=== PATIENT | male | born 1965 | race African-American/Black ===

== ENCOUNTER → 2016-05-29 | Outpatient (CLI) | payer MEDICAID | LOC: RAD 16:56 | PROVIDERS: ATTEND Physician Assistant | DX: R26.9 Unspecified abnormalities of gait and mobility (principal); R20.9 Unspecified disturbances of skin sensation; M47.892 Other spondylosis, cervical region; Z86.73 Personal history of transient ischemic attack (TIA), and cerebral infarction without residual deficits | CPT/HCPCS: 70551; 72141 ==

== ENCOUNTER → 2016-07-30 | Outpatient (CLI) | payer MEDICAID, OTHER ==
[2016-07-30 14:03] LABS: ABSOLUTE EOSINOPHILS # (AUTO) 0.1 10^3/uL (0.0-0.6); ABSOLUTE LYMPHOCYTES (AUTO) 2.1 10^3/uL (0.5-4.7); ABSOLUTE MONOCYTES (AUTO) 0.5 10^3/uL (0.1-1.4); ABSOLUTE NEUT (AUTO) 4.5 10^3/uL (1.7-8.2); BASOPHILS % (AUTO) 0.5 % (0-2); EOSINOPHILS % (AUTO) 1.1 % (0-6); HEMATOCRIT 51.5 % (37.9-51.0); HEMOGLOBIN 16.8 g/dL (13.5-17.0); HGB HCT DIFFERENCE -1.1; LYMPHOCYTES % (AUTO) 28.6 % (13-45); MEAN CORPUSCULAR HEMOGLOBIN 29.4 pg (27.0-33.4); MEAN CORPUSCULAR HGB CONC 32.7 g/dL (32.0-36.0); MEAN CORPUSCULAR VOLUME 90 fl (80-97); MONOCYTES % (AUTO) 7.6 % (3-13); RED BLOOD COUNT 5.74 10^6/uL (4.35-5.55); RED CELL DISTRIBUTION WIDTH 15.3 % (11.5-14.0); SEGMENTED NEUTROPHILS % (AUTO) 62.2 % (42-78); WHITE BLOOD COUNT 7.2 10^3/uL (4.0-10.5)
[2016-07-30 14:17] LABS: ALANINE AMINOTRANSFERASE 36 U/L (21-72); ALBUMIN 4.1 g/dL (3.5-5.0); ALKALINE PHOSPHATASE 91 U/L (38-126); ANION GAP 10 (5-19); ASPARTATE AMINO TRANSFERASE 23 U/L (17-59); BILIRUBIN,DIRECT 0.4 mg/dL (0.0-0.4); BILIRUBIN,TOTAL 0.6 mg/dL (0.2-1.3); BLOOD UREA NITROGEN 9 mg/dL (7-20); CALCIUM 9.3 mg/dL (8.4-10.2); CARBON DIOXIDE 29 mmol/L (22-30); CHLORIDE 107 mmol/L (98-107); CHOLESTEROL 136.31 mg/dL (0-200); CREATININE RESULT 0.97 mg/dL (0.52-1.25); Direct HDL 43 mg/dL (>40); GLUCOSE 105 mg/dL (75-110); SODIUM 145.6 mmol/L (137-145); TOTAL PROTEIN 7.8 g/dL (6.3-8.2); TRIGLYCERIDES 93 mg/dL (<150)
[2016-07-30 14:28] LABS: DIRECT LDL 58 mg/dL (<100)
== END ==
LOC: LAB 13:39
PROVIDERS: ATTEND Physician Assistant
DX: F31.9 Bipolar disorder, unspecified (principal)
CPT/HCPCS: 36415; 80053; 80061; 83036; 85025

== ENCOUNTER 2016-10-15 10:29 | Emergency (ER) | payer MEDICAID ==
--- NOTE | 2016-10-15 11:23 | ER Document Report ---
ED Medical Screen (RME) - General Chief Complaint: Breathing Difficulty Stated Complaint: DIFFICULTY BREATHING Time Seen by Provider: 10/15/16 10:59 Mode of Arrival: Ambulatory Information source: Patient TRAVEL OUTSIDE OF THE [place] IN LAST 30 DAYS: No - HPI Patient complains to provider of: Cough, shortness of breath Onset: Other - 2 Weeks Associated Symptoms: Cough (nonproductive), Shortness of breath Exacerbated by: Denies Relieved by: Denies Notes: 10/15/16 11:22 Patient is a 51-year-old male with a history of COPD who is on 2 L of oxygen , presents to the emergency room complaining of nonproductive cough with shortness of breath this been worsening over the past 2 weeks, no fevers, no chest pain, he does not use CPAP at night - Related Data Allergies/Adverse Reactions: No Known Allergies Allergy (Verified 10/15/16 10:34) Past Medical History - Past Medical History Cardiac Medical History: Reports: Hx Hypertension Neurological Medical History: Reports: Hx Cerebrovascular Accident - 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., Hx Seizures Renal/ Medical History: Denies: Hx Peritoneal Dialysis Psychiatric Medical History: Reports: Hx Depression Past Surgical History: Reports: Hx Neurologic Surgery - 2 [place]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
[2016-10-15 11:50] LABS: ABSOLUTE BASOPHILS # (AUTO) 0.1 10^3/uL (0.0-0.2); ABSOLUTE EOSINOPHILS # (AUTO) 0.1 10^3/uL (0.0-0.6); ABSOLUTE LYMPHOCYTES (AUTO) 1.9 10^3/uL (0.5-4.7); ABSOLUTE MONOCYTES (AUTO) 0.7 10^3/uL (0.1-1.4); ABSOLUTE NEUT (AUTO) 5.1 10^3/uL (1.7-8.2); BASOPHILS % (AUTO) 0.7 % (0-2); EOSINOPHILS % (AUTO) 1.6 % (0-6); HEMATOCRIT 48.5 % (37.9-51.0); HEMOGLOBIN 16.7 g/dL (13.5-17.0); HGB HCT DIFFERENCE 1.6; LYMPHOCYTES % (AUTO) 24.2 % (13-45); MEAN CORPUSCULAR HEMOGLOBIN 30.4 pg (27.0-33.4); MEAN CORPUSCULAR HGB CONC 34.3 g/dL (32.0-36.0); MEAN CORPUSCULAR VOLUME 89 fl (80-97); MONOCYTES % (AUTO) 8.4 % (3-13); RED BLOOD COUNT 5.48 10^6/uL (4.35-5.55); RED CELL DISTRIBUTION WIDTH 14.7 % (11.5-14.0); SEGMENTED NEUTROPHILS % (AUTO) 65.1 % (42-78); WHITE BLOOD COUNT 7.9 10^3/uL (4.0-10.5)
[2016-10-15 11:53] LABS: VENOUS BLOOD BASE EXCESS 3.9 mmol/L; VENOUS BLOOD HCO3 32.1 mmol/L (20-32); VENOUS BLOOD PCO2 61.9 mmHg (35-63); VENOUS BLOOD PH 7.33 (7.30-7.42)
[2016-10-15 12:11] LABS: ALANINE AMINOTRANSFERASE 37 U/L (21-72); ALBUMIN 4.3 g/dL (3.5-5.0); ALKALINE PHOSPHATASE 87 U/L (38-126); ANION GAP 11 (5-19); ASPARTATE AMINO TRANSFERASE 29 U/L (17-59); BILIRUBIN,DIRECT 0.3 mg/dL (0.0-0.4); BILIRUBIN,TOTAL 0.9 mg/dL (0.2-1.3); BLOOD UREA NITROGEN 20 mg/dL (7-20); CALCIUM 9.3 mg/dL (8.4-10.2); CARBON DIOXIDE 33 mmol/L (22-30); CHLORIDE 101 mmol/L (98-107); CREATINE KINASE 192 U/L (55-170); CREATININE RESULT 1.06 mg/dL (0.52-1.25); GLUCOSE 92 mg/dL (75-110); POTASSIUM 3.6 mmol/L (3.6-5.0); SODIUM 144.7 mmol/L (137-145); TOTAL PROTEIN 8.1 g/dL (6.3-8.2)
--- NOTE | 2016-10-15 12:21 | ER Document Report ---
ED Respiratory Problem - General Mode of Arrival: Ambulatory TRAVEL OUTSIDE OF THE [place] IN LAST 30 DAYS: No - HPI Patient complains to provider of: COPD, Short of breath Associated symptoms: Other - see above <GARCÍA HERNANDEZ - Last Filed: 10/15/16 12:26> <BRITNEY PINEDA - Last Filed: 10/15/16 13:31> - General Chief Complaint: Breathing Difficulty Stated Complaint: DIFFICULTY BREATHING Time Seen by Provider: 10/15/16 10:59 Notes: Patient is a 51 year old male with a history of COPD presents to the ED with complaints of worsening SOB and a non productive cough. Patient is on 2L of O2 via nasal cannula 05/10 and has been for about the past year. Patient was told to come to the ED for evaluation. Patient states his dyspnea is worse at night time. Patient is also complaining of right shoulder pain when he rolls over on it at night time. Patient denies sore throat. 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 denies: Throat pain Cardiovascular: No symptoms reported Respiratory: See HPI, Cough, Short of breath. denies: Sputum Gastrointestinal: No symptoms reported Genitourinary: No symptoms reported Male Genitourinary: No symptoms reported Musculoskeletal: See HPI, Joint pain - right shoulder Skin: No symptoms reported Hematologic/Lymphatic: No symptoms reported Neurological/Psychological: No symptoms reported <GARCÍA HERNANDEZ - Last Filed: 10/15/16 12:26> Physical Exam - General General appearance: Appears well, Alert In distress: None - HEENT Head: Normocephalic, Atraumatic Eyes: Normal Extraocular movements intact: Yes Pupils: PERRL Tympanic membrane: Normal Pharynx: Uvular edema, Other - soft palate on right is more asymetrical than left, likely from previous stroke; class 2 mallampati - Respiratory Respiratory status: No respiratory distress Breath sounds: Normal - Cardiovascular Rhythm: Regular Heart sounds: Normal auscultation Murmur: No - Abdominal Inspection: Normal Distension: Distended Bowel sounds: Normal Tenderness: Nontender - Back Back: Normal - Extremities General upper extremity: Normal inspection, Normal ROM General lower extremity: Normal inspection, Normal ROM - Neurological Neuro grossly intact: Yes - Psychological Associated symptoms: Normal affect, Normal mood - Skin Skin Temperature: Warm Skin Moisture: Dry Skin Color: Normal <GARCÍA HERNANDEZ - Last Filed: 10/15/16 12:26> Course - Laboratory Result Diagrams: 10/15/16 11:36 10/15/16 11:36 <GARCÍA HERNANDEZ - Last Filed: 10/15/16 12:26> - Laboratory Result Diagrams: 10/15/16 11:36 10/15/16 11:36 - Diagnostic Test Radiology reviewed: Image reviewed, Reports reviewed - 2 view chest x-ray is unremarkable - EKG Interpretation by Nm EKG shows normal: Sinus rhythm, [place], Intervals, QRS Complexes. abnormal: ST-T Waves - Nonspecific anterolateral T abnormalities Rate: Normal - 55 Rhythm: NSR Voltage: Decreased voltage <BRITNEY PINEDA - Last Filed: 10/15/16 13:31> - Vital Signs Vital signs: Temp Pulse Resp BP Pulse Ox 97 F L 55 L 11 L 121/85 98 10/15/16 13:01 10/15/16 10:34 10/15/16 13:01 10/15/16 13:01 10/15/16 13:12 - Laboratory Laboratory results interpreted by wa: 10/15/16 10/15/16 10/15/16 11:36 11:36 11:36 RDW 14.7 H VBG HCO3 32.1 H Carbon Dioxide 33 H Creatine Kinase 192 H Discharge <GARCÍA HERNANDEZ - Last Filed: 10/15/16 12:26> <BRITNEY PINEDA - Last Filed: 10/15/16 13:31> - Discharge Clinical Impression: Upper respiratory tract infection Qualifiers: URI type: unspecified viral URI Qualified Code(s): J06.9 - Acute upper respiratory infection, unspecified; B97.89 - Other viral agents as the cause of diseases classified elsewhere COPD (chronic obstructive pulmonary disease) Qualifiers: COPD type: unspecified COPD Qualified Code(s): J44.9 - Chronic obstructive pulmonary disease, unspecified Condition: Stable Disposition: HOME, SELF-CARE Additional Instructions: Upper Respiratory Illness: You have a viral infection of the respiratory passages -- a "cold." This common infection causes nasal congestion, drainage, and often sore throat and cough. It is caused by a virus and is highly contagious. The disease usually lasts a week or more, though the worst symptoms are usually over in 3 or 4 days. There is no "cure" for the viral infection -- it must run its course. If there is a complication, such as bacterial infection in the nose, sinuses, middle ear, or bronchial tubes, antibiotics may be required, but antibiotics won 't affect the virus. If you smoke, you should STOP!! Drink plenty of fluids. A humidifier may help. An expectorant medication or decongestant may make you more comfortable. Use acetaminophen or ibuprofen for fever or aches. See the doctor if fever persists over two or three days, if there is any significant worsening of your symptoms, or if you simply fail to improve as expected. TRY ROBITUSSIN-DM FOR COUGH CONTROL. REST. FOLLOW UP WITH YOUR MEDICAL DOCTOR AND PULMONARY DOCTOR IF NOT IMPROVING. RETURN TO THE EMERGENCY ROOM IF ANY NEW OR WORSENING SYMPTOMS. Scribe Attestation: 10/15/16 13:30 I personally performed the services described in the documentation, reviewed and edited the documentation which was dictated to the scribe in my presence, and it accurately records my words and actions. (BRITNEY PINEDA) Scribe Documentation - Scribe Written by Tiara:: tiara Payne, 10/15/2016, 1219 acting as scribe for :: Ann-Marie <GARCÍA HERNANDEZ - Last Filed: 10/15/16 12:26>
[2016-10-15 12:24] LABS: CREATINE KINASE MB 0.43 ng/mL (<4.55)
[2016-10-15 12:29] LABS: TROPONIN I < 0.012 ng/mL
--- NOTE | 2016-10-15 12:42 | RADIOLOGY REPORT (SQ) ---
EXAM DESCRIPTION: CHEST PA/LAT COMPLETED DATE/TIME: 10/15/2016 12:01 pm REASON FOR STUDY: cough COMPARISON: 08/18/2014 EXAM PARAMETERS: NUMBER OF VIEWS: two views TECHNIQUE: Digital Frontal and Lateral radiographic views of the chest acquired. RADIATION DOSE: NA LIMITATIONS: none FINDINGS: LUNGS AND PLEURA: No opacities, masses or pneumothorax. No pleural effusion. MEDIASTINUM AND HILAR STRUCTURES: No masses or contour abnormalities. HEART AND VASCULAR STRUCTURES: Heart normal size. No evidence for failure. BONES: No acute findings. HARDWARE: None in the chest. OTHER: No other significant finding. IMPRESSION: NO SIGNIFICANT RADIOGRAPHIC FINDING IN THE CHEST. TECHNICAL DOCUMENTATION: JOB ID: [id number] [employer]- All Rights Reserved
--- NOTE | 2016-10-15 13:07 | EKG REPORT ---
SEVERITY:- ABNORMAL ECG - SINUS RHYTHM LOW VOLTAGE IN FRONTAL LEADS NONSPECIFIC T ABNORMALITIES, ANT-LAT LEADS : Confirmed by: Saul Mercer MD 15-Oct-2016 13:06:45
[2016-10-15 13:58] VITALS: BP 123/84
== END 2016-10-15 13:59 | disposition home or self-care (01) ==
LOC: ER 10:29
DX: J06.9 Acute upper respiratory infection, unspecified (principal); B97.89 Other viral agents as the cause of diseases classified elsewhere; J44.9 Chronic obstructive pulmonary disease, unspecified; R06.02 Shortness of breath; R05 Cough; R06.00 Dyspnea, unspecified; M25.511 Pain in right shoulder
CPT/HCPCS: 36415; 71020; 80053; 82550; 82553; 82803; 83880; 84484; 85025; 87040; 93005; 93010; 99285

== ENCOUNTER 2016-11-04 17:33 | Emergency (ER) | payer MEDICAID ==
--- NOTE | 2016-11-04 19:36 | ER Document Report ---
ED Medical Screen (RME) - General Chief Complaint: Headache >24 hrs old Stated Complaint: HEADACHE Time Seen by Provider: 11/04/16 19:35 Notes: Patient states he has been having some trouble with urinating blood as well as feeling weak. He is also noticed some swelling to the right side of his face. He states he has had 2 cerebral aneurysms clipped in the past. He states he is not currently on any blood thinners. He does have some burning with urination. TRAVEL OUTSIDE OF THE [place] 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., Hx Seizures Renal/ Medical History: Denies: Hx Peritoneal Dialysis Psychiatric Medical History: Reports: Hx Depression Past Surgical History: Reports: Hx Neurologic Surgery - 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
[2016-11-04 20:02] LABS: ABSOLUTE EOSINOPHILS # (AUTO) 0.2 10^3/uL (0.0-0.6); ABSOLUTE LYMPHOCYTES (AUTO) 2.5 10^3/uL (0.5-4.7); ABSOLUTE MONOCYTES (AUTO) 0.8 10^3/uL (0.1-1.4); ABSOLUTE NEUT (AUTO) 5.2 10^3/uL (1.7-8.2); BASOPHILS % (AUTO) 0.4 % (0-2); EOSINOPHILS % (AUTO) 1.8 % (0-6); HEMATOCRIT 48.2 % (37.9-51.0); HEMOGLOBIN 16.3 g/dL (13.5-17.0); HGB HCT DIFFERENCE 0.7; MEAN CORPUSCULAR HEMOGLOBIN 29.9 pg (27.0-33.4); MEAN CORPUSCULAR HGB CONC 33.9 g/dL (32.0-36.0); MEAN CORPUSCULAR VOLUME 88 fl (80-97); MONOCYTES % (AUTO) 9.2 % (3-13); RED BLOOD COUNT 5.45 10^6/uL (4.35-5.55); RED CELL DISTRIBUTION WIDTH 15.3 % (11.5-14.0); SEGMENTED NEUTROPHILS % (AUTO) 59.6 % (42-78); WHITE BLOOD COUNT 8.7 10^3/uL (4.0-10.5)
[2016-11-04 20:12] LABS: APPEARANCE,URINE SLIGHTLY-CLOUDY; BILIRUBIN,URINE NEGATIVE (NEGATIVE); GLUCOSE, URINE NEGATIVE (NEGATIVE); KETONES,URINE NEGATIVE (NEGATIVE); LEUKOCYTE ESTERASE,URINE MODERATE (NEGATIVE); NITRITE,URINE NEGATIVE (NEGATIVE); PROTEIN,URINE NEGATIVE (NEGATIVE); URINE SPECIFIC GRAVITY 1.023; UROBILINOGEN,URINE NEGATIVE mg/dL (<2.0)
[2016-11-04 20:21] LABS: ALANINE AMINOTRANSFERASE 53 U/L (21-72); ALBUMIN 4.1 g/dL (3.5-5.0); ALKALINE PHOSPHATASE 84 U/L (38-126); ANION GAP 11 (5-19); ASPARTATE AMINO TRANSFERASE 35 U/L (17-59); BILIRUBIN,DIRECT 0.4 mg/dL (0.0-0.4); BILIRUBIN,TOTAL 0.8 mg/dL (0.2-1.3); BLOOD UREA NITROGEN 13 mg/dL (7-20); CALCIUM 9.5 mg/dL (8.4-10.2); CARBON DIOXIDE 29 mmol/L (22-30); CHLORIDE 104 mmol/L (98-107); CREATININE RESULT 0.99 mg/dL (0.52-1.25); GLUCOSE 89 mg/dL (75-110); POTASSIUM 3.9 mmol/L (3.6-5.0); SODIUM 144.1 mmol/L (137-145); TOTAL PROTEIN 7.8 g/dL (6.3-8.2)
[2016-11-04] MEDS ORDERED: CEFTRIAXONE 1 GM/D5W RTU 1 GM/50 ML RTUPB IV ONE (20:34)
[2016-11-04] MEDS ORDERED: CEPHALEXIN 500 MG CAPSULE PO ONE (23:43)
--- NOTE | 2016-11-04 23:44 | ER Document Report ---
ED GI/ - General Chief Complaint: Headache >24 hrs old Stated Complaint: HEADACHE Time Seen by Provider: 11/04/16 19:35 Mode of Arrival: Ambulatory Information source: Patient TRAVEL OUTSIDE OF THE [place] IN LAST 30 DAYS: No - HPI Patient complains to provider of: Dysuria, Hematuria Onset: This morning Timing/Duration: Sudden Quality of pain: Achy, Burning Severity at maximum: Mild Severity in ED: Mild Pain Level: 2 Location: Suprapubic Associated symptoms: Dysuria, Hematuria Exacerbated by: Denies Relieved by: Denies Similar symptoms previously: No Recently seen / treated by doctor: No Notes: 11/05/16 00:35 Patient is a 51-year-old male presenting to the emergency room today complaining of dysuria with hematuria that started this morning, he reports a burning sensation with urination, no penile discharge, no injury or trauma, no fever, no nausea, vomiting or diarrhea, denies a history of similar symptoms previously - Related Data Allergies/Adverse Reactions: No Known Allergies Allergy (Verified 11/04/16 17:58) Past Medical History - General Information source: Patient - Social History Smoking Status: Never Smoker Chew tobacco use (# tins/day): No Frequency of alcohol use: None Drug Abuse: None Family History: Reviewed & Not Pertinent Patient has suicidal ideation: No Patient has homicidal ideation: No - Past Medical History Cardiac Medical History: Reports: Hx Hypertension Pulmonary Medical History: Reports: Hx COPD Neurological Medical History: Reports: Hx Cerebrovascular Accident - 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., Hx Seizures Renal/ Medical History: Denies: Hx Peritoneal Dialysis Psychiatric Medical History: Reports: Hx Depression Past Surgical History: Reports: Hx Neurologic Surgery - 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/ventriculostomy tube following the SAH, Hx Oral Surgery - fractured jaw surgery - Immunizations Hx Diphtheria, Pertussis, Tetanus Vaccination: No Review of Systems - Review of Systems Constitutional: No symptoms reported EENT: No symptoms reported Cardiovascular: No symptoms reported Respiratory: No symptoms reported Gastrointestinal: No symptoms reported Genitourinary: See HPI Male Genitourinary: No symptoms reported Musculoskeletal: No symptoms reported Skin: No symptoms reported Hematologic/Lymphatic: No symptoms reported Neurological/Psychological: No symptoms reported -: Yes All other systems reviewed and negative Physical Exam - Vital signs Vitals: Temp Pulse Resp BP Pulse Ox 98.6 F 62 18 113/71 97 11/04/16 17:38 11/04/16 17:38 11/04/16 17:38 11/04/16 17:38 11/04/16 17:38 Interpretation: Normal - General General appearance: Appears well, Alert - HEENT Head: Normocephalic, Atraumatic Eyes: Normal Pupils: PERRL - Respiratory Respiratory status: No respiratory distress Chest status: Nontender Breath sounds: Normal Chest palpation: Normal - Cardiovascular Rhythm: Regular Heart sounds: Normal auscultation Murmur: No - Abdominal Inspection: Normal Distension: Distended Bowel sounds: Normal Tenderness: Tender - Suprapubic Organomegaly: No organomegaly - Back Back: Normal, Nontender - Extremities General upper extremity: Normal inspection, Nontender, Normal color, Normal ROM , Normal temperature General lower extremity: Normal inspection, Nontender, Normal color, Normal ROM , Normal temperature, Normal weight bearing. No: Eulalia's sign - Neurological Neuro grossly intact: Yes Cognition: Normal Orientation: AAOx4 Bhanu Coma Scale Eye Opening: Spontaneous Bhanu Coma Scale Verbal: Oriented Price Coma Scale Motor: Obeys Commands Bhanu Coma Scale Total: 15 Speech: Normal Motor strength normal: LUE, RUE, LLE, RLE Sensory: Normal - Psychological Associated symptoms: Normal affect, Normal mood - Skin Skin Temperature: Warm Skin Moisture: Dry Skin Color: Normal Course - Re-evaluation Re-evalutation: 11/05/16 00:36 Lab findings were discussed with patient at bedside which are consistent with urinary tract infection, patient was started on antibiotics, advised to follow- up with his primary care provider in 2-3 days or return if symptoms worsen, patient acknowledges understanding and agreement with this plan - Vital Signs Vital signs: Temp Pulse Resp BP Pulse Ox 98.2 F 65 18 116/72 99 11/05/16 00:15 11/05/16 00:15 11/05/16 00:15 11/05/16 00:15 11/05/16 00:15 - Laboratory Result Diagrams: 11/04/16 19:49 11/04/16 19:49 Laboratory results interpreted by me: 11/04/16 11/04/16 19:49 19:49 RDW 15.3 H Urine Blood MODERATE H Ur Leukocyte Esterase MODERATE H Discharge - Discharge Clinical Impression: Urinary tract infection Qualifiers: Urinary tract infection type: site unspecified Hematuria presence: without hematuria Qualified Code(s): N39.0 - Urinary tract infection, site not specified Condition: Stable Disposition: HOME, SELF-CARE Instructions: Urinary Tract Infection ([facility]) Additional Instructions: Follow up with your primary care provider in one to 2 days. Return to the emergency room immediately if symptoms worsen or any additional concerns. Prescriptions: Cephalexin Monohydrate [Keflex 500 mg Capsule] 500 mg PO BID #20 capsule
[2016-11-05 00:16] VITALS: BP 116/72
== END 2016-11-05 00:17 | disposition home or self-care (01) ==
LOC: ER 17:33
DX: N39.0 Urinary tract infection, site not specified (principal); R14.0 Abdominal distension (gaseous); I10 Essential (primary) hypertension; J44.9 Chronic obstructive pulmonary disease, unspecified
CPT/HCPCS: 99283; 96365; 36415; 85025; 80053; 81001; J0696

== ENCOUNTER 2017-01-26 17:54 | Emergency (ER) | payer MEDICAID ==
--- NOTE | 2017-01-26 19:19 | ER Document Report ---
ED Medical Screen (RME) - General Chief Complaint: Urinary Problem Stated Complaint: ALTERED MENTAL STATUS,URINARY ISSUES Time Seen by Provider: 01/26/17 19:18 Notes: pt with ams today per . pt crying and afraid to leave the house. This is new. pt has hx of two previous brain aneurysms being clipped. TRAVEL OUTSIDE OF THE [place] IN LAST 30 DAYS: No - Related Data Allergies/Adverse Reactions: No Known Allergies Allergy (Verified 01/26/17 18:00) Home Medications: Current Home Medications Aripiprazole [Abilify 30 MG Tablet] 30 mg PO DAILY 01/26/17 [History] Dextroamphetamine/Amphetamine [Adderall Xr 10 mg Capsule] 10 mg PO DAILY [History] Escitalopram Oxalate 20 mg PO DAILY 01/26/17 [History] Fluticasone/Salmeterol [Advair 250-50 Diskus 28 dose] 1 puff IH BID 01/26/17 [ History] Gabapentin 400 mg PO QID 01/26/17 [History] Lamotrigine 100 mg PO BID 01/26/17 [History] Trazodone HCl 100 mg PO QHS 01/26/17 [History] Zolpidem Tartrate 10 mg PO QHS 01/26/17 [History] Past Medical History - Social History Chew tobacco use (# tins/day): No Frequency of alcohol use: None Drug Abuse: None - Past Medical History Cardiac Medical History: Reports: Hx Hypertension Pulmonary Medical History: Reports: Hx COPD Neurological Medical History: Reports: Hx Cerebrovascular Accident - 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., Hx Seizures Renal/ Medical History: Denies: Hx Peritoneal Dialysis Psychiatric Medical History: Reports: Hx Depression Past Surgical History: Reports: Hx Neurologic Surgery - 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
[2017-01-26 19:30] LABS: APPEARANCE,URINE CLEAR; BILIRUBIN,URINE NEGATIVE (NEGATIVE); GLUCOSE, URINE NEGATIVE (NEGATIVE); KETONES,URINE NEGATIVE (NEGATIVE); LEUKOCYTE ESTERASE,URINE SMALL (NEGATIVE); NITRITE,URINE NEGATIVE (NEGATIVE); PROTEIN,URINE NEGATIVE (NEGATIVE); URINE SPECIFIC GRAVITY 1.027
[2017-01-26] MEDS ORDERED: NORMAL SALINE 1000 ML 1,000 ML IV ONE (19:37)
[2017-01-26] MEDS ORDERED: CEFTRIAXONE 1 GM/D5W RTU 1 GM/50 ML RTUPB IV ONE ×2 (19:48→20:30)
--- NOTE | 2017-01-26 20:03 | RADIOLOGY REPORT (SQ) ---
EXAM DESCRIPTION: CT HEAD WITHOUT COMPLETED DATE/TIME: 01/26/2017 7:54 pm REASON FOR STUDY: ams COMPARISON: 08/19/2014 TECHNIQUE: Axial images acquired through the brain without intravenous contrast. Images reviewed wi th bone, brain and subdural windows. Images stored on PACS. All CT scanners at this facility use dose modulation, iterative reconstruction, and/or weight based d osing when appropriate to reduce radiation dose to as low as reasonably achievable (ALARA). [facility]: Dose Right [facility]: CareDose [facility]: Dose Right [facility]: Teradose 4D [facility]: [employer] RADIATION DOSE: mGy. LIMITATIONS: None. FINDINGS: VENTRICLES: Normal size and contour. CEREBRUM: No masses. No hemorrhage. No midline shift. No evidence for acute infarction. Normal gra y/white matter differentiation. No areas of low density in the white matter. Aneurysm clip. Focal l eft frontal infarct. CEREBELLUM: No masses. No hemorrhage. No alteration of density. No evidence for acute infarction. EXTRAAXIAL SPACES: No fluid collections. No masses. ORBITS AND GLOBE: No intra- or extraconal masses. Normal contour of globe without masses. CALVARIUM: Right frontal craniotomy defect. PARANASAL SINUSES: No fluid or mucosal thickening. SOFT TISSUES: No mass or hematoma. OTHER: No other significant finding. IMPRESSION: No acute intracranial process. EVIDENCE OF ACUTE STROKE: NO. COMMENT: Quality ID # [id number]: Final reports with documentation of one or more dose reduction techniques (e.g., Automated exposure control, adjustment of the mA and/or kV according to patient size, use of iterative reconstruction technique) TECHNICAL DOCUMENTATION: JOB ID: [id number] [employer]- All Rights Reserved
[2017-01-26 20:14] LABS: ABSOLUTE EOSINOPHILS # (AUTO) 0.1 10^3/uL (0.0-0.6); ABSOLUTE LYMPHOCYTES (AUTO) 2.5 10^3/uL (0.5-4.7); ABSOLUTE MONOCYTES (AUTO) 0.8 10^3/uL (0.1-1.4); ABSOLUTE NEUT (AUTO) 3.5 10^3/uL (1.7-8.2); BASOPHILS % (AUTO) 0.6 % (0-2); EOSINOPHILS % (AUTO) 1.1 % (0-6); HEMATOCRIT 48.1 % (37.9-51.0); HEMOGLOBIN 16.6 g/dL (13.5-17.0); HGB HCT DIFFERENCE 1.7; MEAN CORPUSCULAR HEMOGLOBIN 30.8 pg (27.0-33.4); MEAN CORPUSCULAR HGB CONC 34.5 g/dL (32.0-36.0); MEAN CORPUSCULAR VOLUME 89 fl (80-97); MONOCYTES % (AUTO) 11.9 % (3-13); RED BLOOD COUNT 5.38 10^6/uL (4.35-5.55); RED CELL DISTRIBUTION WIDTH 16.1 % (11.5-14.0); SEGMENTED NEUTROPHILS % (AUTO) 50.4 % (42-78); WHITE BLOOD COUNT 6.9 10^3/uL (4.0-10.5)
--- NOTE | 2017-01-26 20:32 | RADIOLOGY REPORT (SQ) ---
EXAM DESCRIPTION: CHEST SINGLE VIEW COMPLETED DATE/TIME: 01/26/2017 8:17 pm REASON FOR STUDY: sob COMPARISON: 10/15/2016 EXAM PARAMETERS: NUMBER OF VIEWS: One view. TECHNIQUE: Single frontal radiographic view of the chest acquired. RADIATION DOSE: NA LIMITATIONS: None. FINDINGS: LUNGS AND PLEURA: No opacities, masses or pneumothorax. No pleural effusion. MEDIASTINUM AND HILAR STRUCTURES: No masses. Contour normal. HEART AND VASCULAR STRUCTURES: Heart normal in size. Normal vasculature. BONES: No acute findings. HARDWARE: None in the chest. OTHER: No other significant finding. IMPRESSION: NO ACUTE RADIOGRAPHIC FINDING IN THE CHEST. TECHNICAL DOCUMENTATION: JOB ID: [id number]- All Rights Reserved
[2017-01-26 20:33] LABS: ANION GAP 13 (5-19); BLOOD UREA NITROGEN 17 mg/dL (7-20); CALCIUM 9.1 mg/dL (8.4-10.2); CARBON DIOXIDE 29 mmol/L (22-30); CHLORIDE 106 mmol/L (98-107); CREATININE RESULT 1.62 mg/dL (0.52-1.25); GLUCOSE 83 mg/dL (75-110); POTASSIUM 4.3 mmol/L (3.6-5.0); SODIUM 147.5 mmol/L (137-145)
--- NOTE | 2017-01-26 20:40 | ER Document Report ---
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 Patient has recently had recurrent urinary tract infections of uncertain etiology and is scheduled for outpatient neurology follow-up but has not yet been able to follow-up. states that she was out of town for the past 1 week when she got home today she noticed that her was not acting at his baseline. She states that he appeared confused. Apparently the patient's daughter was staying at home with the patient states that for the past 1 week he has had minimal oral intake and has been getting progressively more altered. He has a history of similar symptoms in the past with urinary tract infections. Nothing is otherwise seemed to improve or worsen the patient's symptoms. He has not complained of any localized symptoms. He has not seen his primary care doctor regarding today's concerns. TRAVEL OUTSIDE OF THE [place] IN LAST 30 DAYS: No - Related Data Allergies/Adverse Reactions: No Known Allergies Allergy (Verified 01/26/17 18:00) Home Medications: Current Home Medications Aripiprazole [Abilify 30 MG Tablet] 30 mg PO DAILY 01/26/17 [History] Dextroamphetamine/Amphetamine [Adderall Xr 10 mg Capsule] 10 mg PO DAILY [History] Escitalopram Oxalate 20 mg PO DAILY 01/26/17 [History] Fluticasone/Salmeterol [Advair 250-50 Diskus 28 dose] 1 puff IH BID 01/26/17 [ History] Gabapentin 400 mg PO QID 01/26/17 [History] Lamotrigine 100 mg PO BID 01/26/17 [History] Trazodone HCl 100 mg PO QHS 01/26/17 [History] Zolpidem Tartrate 10 mg PO QHS 01/26/17 [History] Past Medical History - General Information source: Patient, Relative - Social History Smoking Status: Former Smoker Chew tobacco use (# tins/day): No Frequency of alcohol use: None Drug Abuse: None Lives with: Spouse/Significant other Family History: Reviewed & Not Pertinent Patient has suicidal ideation: No Patient has homicidal ideation: No - Past Medical History Cardiac Medical History: Reports: Hx Hypertension Pulmonary Medical History: Reports: Hx COPD Neurological Medical History: Reports: Hx Cerebrovascular Accident - 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 Positive for confusion HENT: Negative for sore throat. Eyes: Negative for visual changes. Cardiovascular: Negative for chest pain. Respiratory: Negative for shortness of breath. Gastrointestinal: Negative for abdominal pain, vomiting or diarrhea. Genitourinary: Positive for dysuria. Musculoskeletal: Negative for back pain. Skin: Negative for rash. Neurological: Negative for headaches, weakness or numbness. 10 point ROS negative except as marked above and in HPI. Physical Exam - Vital signs Vitals: Temp Pulse Resp BP Pulse Ox 98.5 F 59 L 24 H 128/79 H 86 L 01/26/17 17:58 01/26/17 17:58 01/26/17 17:58 01/26/17 17:58 01/26/17 17:58 Interpretation: Hypoxic - Patient was not on his nasal cannula at time of this reading Notes: PHYSICAL EXAMINATION: GENERAL: Appears older than stated age but in no acute distress HEAD: Atraumatic, normocephalic. EYES: Pupils equal round and reactive to light, extraocular movements intact, sclera anicteric, conjunctiva are normal. ENT: nares patent, oropharynx clear without exudates. Dry mucous membranes. NECK: Normal range of motion, supple without lymphadenopathy LUNGS: Breath sounds clear to auscultation bilaterally and equal. Scant expiratory wheezing in all lung case. HEART: Regular rate and rhythm without murmurs ABDOMEN: Soft, nontender, normoactive bowel sounds. No guarding, no rebound. No masses appreciated. EXTREMITIES: Normal range of motion, no pitting or edema. No cyanosis. NEUROLOGICAL: No focal neurological deficits. Moves all extremities spontaneously and on command. PSYCH: Alert and oriented. SKIN: Warm, Dry, normal turgor, no rashes or lesions noted. Course - Re-evaluation Re-evalutation: 01/26/17 20:34 Patient presents with altered mental status likely secondary to a urinary tract infection. Patient also is clinically dehydrated and his creatinine is mildly elevated at 1.62 although there is no additional lab abnormalities. Patient does have mild hypoxemia ranging between 92 and 91% although review of prior records shows that this is typical for patient on 2 L by nasal cannula which is his baseline oxygen dependency. A CT of the head was obtained as patient does have a history of spontaneous aneurysmal bleeds in the past and is noted to be normal. Chest x-rays likewise clear without any evidence of an acute pneumonia. Patient has received IV ceftriaxone and IV fluids. He has been able to tolerate oral intake. I do not see an indication for an acute hospitalization at this time given his vitals, labs, and overall nontoxic clinical appearance. He will be started on cephalexin for 5 days and has been encouraged to follow-up with his primary care doctor as well as urology at his earliest ability. At this time will discharge with return precautions and follow-up recommendations. Verbal discharge instructions given a the bedside and opportunity for questions given. Medication warnings reviewed. Patient is in agreement with this plan and has verbalized understanding of return precautions and the need for primary care follow-up in the next 24-72 hours. - Vital Signs Vital signs: Temp Pulse Resp BP Pulse Ox 98.5 F 59 L 21 H 122/86 H 91 L 01/26/17 17:58 01/26/17 17:58 01/26/17 21:01 01/26/17 21:00 01/26/17 21:01 - Laboratory Result Diagrams: 01/26/17 20:05 01/26/17 20:05 Laboratory results interpreted by me: 01/26/17 01/26/17 01/26/17 18:57 20:05 20:05 RDW 16.1 H Sodium 147.5 H Creatinine 1.62 H Est GFR ( Amer) 54 L Est GFR (Non-Af Amer) 45 L Urine Urobilinogen 2.0 H Ur Leukocyte Esterase SMALL H - Diagnostic Test Radiology reviewed: Image reviewed, Reports reviewed Radiology results interpreted by me: 01/26/17 20:37 CT head: No acute intracranial bleed Chest x-ray: No acute infiltrate Discharge - Discharge Clinical Impression: Dehydration Altered mental status Qualifiers: Altered mental status type: unspecified Qualified Code(s): R41.82 - Altered mental status, unspecified Urinary tract infection Qualifiers: Urinary tract infection type: site unspecified Hematuria presence: without hematuria Qualified Code(s): N39.0 - Urinary tract infection, site not specified Condition: Fair Disposition: HOME, SELF-CARE Additional Instructions: You were seen today for confusion and your symptoms are likely related to a urinary tract infection as well as some dehydration. You were given a dose of IV antibiotics and fluids here in the emergency department to hopefully speed up your recovery. You will also be sent home on 5 day course of antibiotics. Please take all of the antibiotics even if you are already feeling better. Please follow-up with your primary care doctor in the next several days. Return if your confusion is not improving or is worsening, you develop a fever, you have persistent vomiting, pass out, or have any other symptoms that are worrisome to you. Prescriptions: Cephalexin Monohydrate [Keflex 500 mg Capsule] 500 mg PO Q6H 5 Days capsule
[2017-01-26 21:30] VITALS: BP 122/86
== END 2017-01-26 21:30 | disposition home or self-care (01) ==
LOC: ER 17:54
DX: N39.0 Urinary tract infection, site not specified (principal); E86.0 Dehydration; R41.82 Altered mental status, unspecified; R39.198 Other difficulties with micturition; H44.9 Unspecified disorder of globe; Z99.81 Dependence on supplemental oxygen; Z79.899 Other long term (current) drug therapy
CPT/HCPCS: 94640; 99285; 96365; 36415; 87086; 85025; 80048; 81001; 71010; 70450; J7030; J0696

== ENCOUNTER → 2017-02-08 | Outpatient (CLI) | payer MEDICAID ==
[2017-02-08 14:34] LABS: HEMOGLOBIN 16.6 g/dL (13.5-17.0); HGB HCT DIFFERENCE 0.8; MEAN CORPUSCULAR HEMOGLOBIN 30.4 pg (27.0-33.4); MEAN CORPUSCULAR VOLUME 90 fl (80-97); RED BLOOD COUNT 5.47 10^6/uL (4.35-5.55); RED CELL DISTRIBUTION WIDTH 16.5 % (11.5-14.0); WHITE BLOOD COUNT 6.4 10^3/uL (4.0-10.5)
[2017-02-08 14:56] LABS: ALANINE AMINOTRANSFERASE 48 U/L (21-72); ALBUMIN 4.2 g/dL (3.5-5.0); ALKALINE PHOSPHATASE 83 U/L (38-126); ANION GAP 10 (5-19); ASPARTATE AMINO TRANSFERASE 24 U/L (17-59); BILIRUBIN,DIRECT 0.5 mg/dL (0.0-0.4); BILIRUBIN,TOTAL 0.7 mg/dL (0.2-1.3); BLOOD UREA NITROGEN 10 mg/dL (7-20); CALCIUM 9.3 mg/dL (8.4-10.2); CARBON DIOXIDE 29 mmol/L (22-30); CHLORIDE 108 mmol/L (98-107); GLUCOSE 105 mg/dL (75-110); POTASSIUM 4.1 mmol/L (3.6-5.0); SODIUM 146.7 mmol/L (137-145); TOTAL PROTEIN 7.8 g/dL (6.3-8.2); TRIGLYCERIDES 158 mg/dL (<150)
[2017-02-08 15:07] LABS: DIRECT LDL 69 mg/dL (<100)
== END ==
LOC: LAB 14:12
PROVIDERS: ATTEND Psychiatry & Neurology Psychiatry
DX: F31.9 Bipolar disorder, unspecified (principal); Z79.899 Other long term (current) drug therapy
CPT/HCPCS: 36415; 80048; 80076; 83036; 83721; 84478; 85027

== ENCOUNTER 2017-06-04 18:11 | Emergency (ER) | payer MEDICAID ==
[2017-06-04] MEDS ORDERED: ASPIRIN 81 MG TABLET, CHEWABLE PO ONE (18:41)
[2017-06-04 19:07] LABS: ABSOLUTE BASOPHILS # (AUTO) 0.1 10^3/uL (0.0-0.2); ABSOLUTE EOSINOPHILS # (AUTO) 0.2 10^3/uL (0.0-0.6); ABSOLUTE LYMPHOCYTES (AUTO) 1.9 10^3/uL (0.5-4.7); ABSOLUTE MONOCYTES (AUTO) 0.6 10^3/uL (0.1-1.4); ABSOLUTE NEUT (AUTO) 5.3 10^3/uL (1.7-8.2); BASOPHILS % (AUTO) 0.9 % (0-2); EOSINOPHILS % (AUTO) 2.4 % (0-6); HEMOGLOBIN 16.9 g/dL (13.5-17.0); LYMPHOCYTES % (AUTO) 23.8 % (13-45); MEAN CORPUSCULAR HGB CONC 33.7 g/dL (32.0-36.0); MEAN CORPUSCULAR VOLUME 89 fl (80-97); PLATELET COUNT 264 10^3/uL (150-450); RED BLOOD COUNT 5.62 10^6/uL (4.35-5.55); RED CELL DISTRIBUTION WIDTH 15.3 % (11.5-14.0); SEGMENTED NEUTROPHILS % (AUTO) 65.9 % (42-78); TOTAL CELLS COUNTED % (AUTO) 100 %; WHITE BLOOD COUNT 8.1 10^3/uL (4.0-10.5)
--- NOTE | 2017-06-04 19:11 | RADIOLOGY REPORT (SQ) ---
EXAM DESCRIPTION: CHEST SINGLE VIEW COMPLETED DATE/TIME: 06/04/2017 7:00 pm REASON FOR STUDY: diff breathing COMPARISON: 01/26/2017. EXAM PARAMETERS: NUMBER OF VIEWS: One view. TECHNIQUE: Single frontal radiographic view of the chest acquired. RADIATION DOSE: NA LIMITATIONS: None. FINDINGS: LUNGS AND PLEURA: No new opacities, masses or pneumothorax. No pleural effusion. MEDIASTINUM AND HILAR STRUCTURES: No masses. Contour normal. HEART AND VASCULAR STRUCTURES: Heart stable in size. Normal vasculature. BONES: No acute findings. HARDWARE: None in the chest. OTHER: No other significant finding. IMPRESSION: NO ACUTE RADIOGRAPHIC FINDING IN THE CHEST. NO SIGNIFICANT CHANGE FROM PRIOR STUDY. TECHNICAL DOCUMENTATION: JOB ID: [id number] [employer]- All Rights Reserved Reading location - IP/workstation name: [email or web address]
--- NOTE | 2017-06-04 19:21 | ER Document Report ---
ED General - General Chief Complaint: CHF Exacerbation Stated Complaint: DIFFICULTY BREATHING Time Seen by Provider: 06/04/17 19:05 Notes: Patient is a 52 year old male that comes to the ED for chief complaint of shortness of breath, weakness, and headache. at bedside states he has been tired with no energy all week, since yesterday has been complaining of shortness of breath, he cannot lie down flat without "feeling like he is going to ". He denies fever, cough, nausea or vomiting, new focal weakness. Denies chest pain. He denies lower extremity swelling. He also states that he has a headache on the left side of his head, his blood pressure has been elevated, he does have a history of CVA and aneurysm with clips. Past medical history of COPD on 3 L nasal cannula at all times, he also has a history of CHF and is on 40 mg Lasix twice daily which she states she has been compliant with. Patient is currently on Keflex for a urinary tract infection as well. He has chronic left-sided weakness from CVA. He goes to [facility], his human resources manager manufacturing is in [place]. TRAVEL OUTSIDE OF THE [place] 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., Hx Seizures Renal/ Medical History: Denies: Hx Peritoneal Dialysis Psychiatric Medical History: Reports: Hx Depression Past Surgical History: Reports: Hx Neurologic Surgery - 2 [place] of [place] aneurysms clipped/ventriculostomy tube following the SAH, Hx Oral Surgery - fractured jaw surgery - Immunizations Hx Diphtheria, Pertussis, Tetanus Vaccination: No Review of Systems - Review of Systems Constitutional: See HPI EENT: No symptoms reported Cardiovascular: See HPI Respiratory: See HPI Gastrointestinal: No symptoms reported Genitourinary: No symptoms reported Male Genitourinary: No symptoms reported Musculoskeletal: No symptoms reported Skin: No symptoms reported Hematologic/Lymphatic: No symptoms reported Neurological/Psychological: See HPI Physical Exam - Vital signs Vitals: Pulse Ox 96 06/04/17 18:41 - General General appearance: Appears well In distress: None - Patient alert, comfortable, no tachypnea, no signs of distress - HEENT Head: Normocephalic, Atraumatic Eyes: Normal Conjunctiva: Normal Extraocular movements intact: Yes Eyelashes: Normal Pupils: PERRL Nasal: Normal Mouth/Lips: Normal Mucous membranes: Normal Pharynx: Normal Neck: Normal - Respiratory Respiratory status: No respiratory distress - No labored breathing, tachypnea, or other signs of distress Breath sounds: Decreased air movement - Mildly decreased breath sounds bilaterally, no overt rales, rhonchi, or wheezes - Cardiovascular Rhythm: Regular. No: Tachycardia Heart sounds: Normal auscultation, S1 appreciated, S2 appreciated Murmur: No Normal capillary refill: Yes - Abdominal Inspection: Normal Tenderness: Nontender. No: Tender, Guarding - Back Back: Normal, Nontender. No: Tender - Extremities General upper extremity: Normal inspection, Nontender, Normal strength, Normal temperature General lower extremity: Normal inspection, Nontender, Normal strength, Normal temperature. No: Edema - Neurological Neuro grossly intact: Yes Cognition: Normal Orientation: AAOx4 Bhanu Coma Scale Eye Opening: Spontaneous Ralph Coma Scale Verbal: Oriented Bhanu Coma Scale Motor: Obeys Commands Bhanu Coma Scale Total: 15 Speech: Normal Motor strength normal: LUE, RUE, LLE, RLE Sensory: Normal - Skin Skin Temperature: Warm Skin Moisture: Dry Skin Color: Normal Course - Re-evaluation Re-evalutation: Patient is well-appearing on exam, he lies down without any difficulty, he has no tachypnea, hypoxia, or signs of distress. Despite reported orthopnea I see no evidence of it. No fever. Patient does not have any obvious neurological deficits on examination either although he is complaining of mild headache on the left side. CAT scan of the head was performed, does not show any intracranial hemorrhage or concerning abnormality. Blood pressures trending downward. Patient denying any symptoms on reevaluation. Chest x-ray does not show vascular congestion, BNP is not elevated, patient has no lower extremity swelling or overt rales on examination, not evidence of congestive heart failure. Troponin is not elevated despite symptoms going on for several days, chemistry generally unremarkable, CBC generally unremarkable including no anemia or leukocytosis. Urine does not show infection or dehydration. Discussed workup and evaluation details with patient and , they state the patient has been feeling poorly ever since he had his medications adjusted including getting taken off his amlodipine. They feel like he should restart his amlodipine. They are unsure if his blood pressures of the past several days. His human resources manager manufacturing and primary care stopped his amlodipine. I recommended that instead of just stopping the medication that patient have his blood pressure checked at least twice a day, keep a record of this, and then follow- up on Wednesday for potential adjustments with primary care. I discussed this with family and patient, they state understanding and agreement. No other complaints at this time, discharged with return precautions. - Vital Signs Vital signs: Temp Pulse Resp BP Pulse Ox 97.7 F 20 158/98 H 100 06/04/17 19:00 06/04/17 22:40 06/04/17 22:40 06/04/17 22:40 - Laboratory Result Diagrams: 06/04/17 18:50 06/04/17 18:50 Laboratory results interpreted by me: 06/04/17 06/04/17 06/04/17 18:50 18:50 21:26 RBC 5.62 H RDW 15.3 H Sodium 147.8 H Chloride 108 H Carbon Dioxide 32 H Direct Bilirubin 0.5 H Urine Urobilinogen 2.0 H Discharge - Discharge Clinical Impression: Low energy, Orthopnea Hypertension Qualifiers: Hypertension type: unspecified Qualified Code(s): I10 - Essential (primary) hypertension Condition: Stable Disposition: HOME, SELF-CARE Additional Instructions: Evaluation does not indicate congestive heart failure, pneumonia, or other concerning abnormality at this time. CAT scan of the head is normal. Recommendation is to log blood pressures at least twice daily, keep a record of these, and then follow-up within the next several days with your primary care for additional adjustment of his medications. Return for any concerning or worsening symptoms including passing out, difficulty breathing, severe headache, vomiting, fever, chest pain, or any other concerning or worsening symptoms.
[2017-06-04 19:36] LABS: CREATINE KINASE MB 0.28 ng/mL (<4.55)
[2017-06-04 19:38] LABS: TROPONIN I < 0.012 ng/mL
[2017-06-04 19:42] LABS: ALANINE AMINOTRANSFERASE 28 U/L (21-72); ALBUMIN 4.3 g/dL (3.5-5.0); ALKALINE PHOSPHATASE 88 U/L (38-126); ANION GAP 8 (5-19); ASPARTATE AMINO TRANSFERASE 28 U/L (17-59); BILIRUBIN,DIRECT 0.5 mg/dL (0.0-0.4); BILIRUBIN,TOTAL 0.7 mg/dL (0.2-1.3); BLOOD UREA NITROGEN 8 mg/dL (7-20); CALCIUM 9.8 mg/dL (8.4-10.2); CARBON DIOXIDE 32 mmol/L (22-30); CHLORIDE 108 mmol/L (98-107); CREATINE KINASE 140 U/L (55-170); GLUCOSE 86 mg/dL (75-110); POTASSIUM 4.3 mmol/L (3.6-5.0); SODIUM 147.8 mmol/L (137-145); TOTAL PROTEIN 8.2 g/dL (6.3-8.2)
--- NOTE | 2017-06-04 20:31 | RADIOLOGY REPORT (SQ) ---
EXAM DESCRIPTION: CT HEAD WITHOUT COMPLETED DATE/TIME: 06/04/2017 8:22 pm REASON FOR STUDY: headache, hypertension COMPARISON: 01/26/2017 TECHNIQUE: Axial images acquired through the brain without intravenous contrast. Images reviewed wi th bone, brain and subdural windows. Images stored on PACS. All CT scanners at this facility use dose modulation, iterative reconstruction, and/or weight based d osing when appropriate to reduce radiation dose to as low as reasonably achievable (ALARA). [facility]: Dose Right [facility]: CareDose [facility]: Dose Right [facility]: Teradose 4D [facility]: Smart Technologies RADIATION DOSE: CT Rad equipment meets quality standard of care and radiation dose reduction techniq ues were employed. CTDIvol: 64.6 mGy. DLP: 1292 mGy-cm. mGy. LIMITATIONS: None. FINDINGS: VENTRICLES: Normal size and contour. CEREBRUM: Stable small area of encephalomalacia left frontal lobe. No masses. No hemorrhage. No mi dline shift. No evidence for acute infarction. Normal galvez/white matter differentiation. No a additi onal significant areas reas of low density in the white matter. CEREBELLUM: No masses. No hemorrhage. No alteration of density. No evidence for acute infarction. EXTRAAXIAL SPACES: No fluid collections. No masses. ORBITS AND GLOBE: No intra- or extraconal masses. Normal contour of globe without masses. CALVARIUM: Stable postsurgical change. PARANASAL SINUSES: No fluid or mucosal thickening. SOFT TISSUES: No mass or hematoma. OTHER: Stable appearance of aneurysm clip. IMPRESSION: NO ACUTE INTRACRANIAL PROCESS. NO SIGNIFICANT CHANGE FROM PRIOR STUDY. EVIDENCE OF ACUTE STROKE: NO. COMMENT: Quality ID # [id number]: Final reports with documentation of one or more dose reduction techniques (e.g., Automated exposure control, adjustment of the mA and/or kV according to patient size, use of iterative reconstruction technique) TECHNICAL DOCUMENTATION: JOB ID: [id number] [employer]- All Rights Reserved Reading location - IP/workstation name: [email or web address]
[2017-06-04 22:09] LABS: APPEARANCE,URINE CLEAR; BILIRUBIN,URINE NEGATIVE (NEGATIVE); COLOR,URINE YELLOW; GLUCOSE, URINE NEGATIVE (NEGATIVE); KETONES,URINE NEGATIVE (NEGATIVE); LEUKOCYTE ESTERASE,URINE NEGATIVE (NEGATIVE); NITRITE,URINE NEGATIVE (NEGATIVE); PROTEIN,URINE NEGATIVE (NEGATIVE); URINE SPECIFIC GRAVITY 1.018
--- NOTE | 2017-06-04 22:16 | EKG REPORT ---
SEVERITY:- BORDERLINE ECG - SINUS RHYTHM LOW VOLTAGE IN FRONTAL LEADS BORDERLINE T WAVE ABNORMALITIES : Confirmed by: Jocelyne Archer 04-Jun-2017 22:15:37
[2017-06-04 22:44] VITALS: BP 158/98
== END 2017-06-04 22:52 | disposition home or self-care (01) ==
LOC: ER 18:11
DX: R06.01 Orthopnea (principal); R06.00 Dyspnea, unspecified; I10 Essential (primary) hypertension; J44.9 Chronic obstructive pulmonary disease, unspecified; I69.954 Hemiplegia and hemiparesis following unspecified cerebrovascular disease affecting left non-dominant side; Z87.891 Personal history of nicotine dependence
CPT/HCPCS: 36415; 70450; 71045; 80053; 81001; 82550; 82553; 83880; 84484; 85025; 93005; 93010; 99285

== ENCOUNTER 2017-07-19 16:59 | Emergency (ER) | payer MEDICAID ==
--- NOTE | 2017-07-19 17:28 | ER Document Report ---
ED Medical Screen (RME) - General Chief Complaint: High Blood Pressure Stated Complaint: BLOOD PRESSURE ISSUE Time Seen by Provider: 07/19/17 17:16 Notes: RAPID MEDICAL EVALUATION DISCLOSURE I have seen this patient as part of a Rapid Medical Evaluation and, if applicable, placed any initially appropriate orders. The patient will be seen and fully evaluated, including a full history and physical exam, by a provider ( in Main ED or Fast Track) when a room becomes available. 52-year-old male PMH high blood pressure here with who states that for the past few days, his blood pressures have been through the roof and she describes them as ranging between 170-180 systolic and as high as 106 diastolic. He has also been complaining of a headache over the past few days. She noticed some slurred speech just prior to arrival however patient had just woken up from a nap and the states that she has not heard him speak in several days. Family members have also not heard him speak today. She believes his last known normal was 2 days ago. She reports he has been very sluggish and just appears as though he does not feel well. He has a prior history of stroke in 2007 with residual left-sided weakness. EXAM Regular rate and rhythm Clear to auscultation bilaterally Strength 5/5 with intact sensation right upper/lower extremities Strength 4+/5 with intact sensation left upper/lower extremities (reportedly patient's baseline) NOTE Last known normal 2 days ago so stroke activation not performed TRAVEL OUTSIDE OF THE [place] 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., Hx Seizures Renal/ Medical History: Denies: Hx Peritoneal Dialysis Psychiatric Medical History: Reports: Hx Depression Past Surgical History: Reports: Hx Neurologic Surgery - 2 [place] of [place] aneurysms clipped/ventriculostomy tube following the SAH, Hx Oral Surgery - fractured jaw surgery - Immunizations Hx Diphtheria, Pertussis, Tetanus Vaccination: No Physical Exam - Vital signs Vitals: Temp Pulse Resp BP Pulse Ox 98.4 F 51 L 14 143/90 H 90 L 07/19/17 17:12 07/19/17 17:12 07/19/17 17:12 07/19/17 17:12 07/19/17 17:12 Course - Vital Signs Vital signs: Temp Pulse Resp BP Pulse Ox 98.4 F 51 L 14 143/90 H 90 L 07/19/17 17:12 07/19/17 17:12 07/19/17 17:12 07/19/17 17:12 07/19/17 17:12
[2017-07-19 18:10] LABS: ABSOLUTE EOSINOPHILS # (AUTO) 0.1 10^3/uL (0.0-0.6); ABSOLUTE MONOCYTES (AUTO) 0.6 10^3/uL (0.1-1.4); BASOPHILS % (AUTO) 0.5 % (0-2); EOSINOPHILS % (AUTO) 1.3 % (0-6); HEMATOCRIT 51.1 % (37.9-51.0); HEMOGLOBIN 17.1 g/dL (13.5-17.0); LYMPHOCYTES % (AUTO) 25.8 % (13-45); MEAN CORPUSCULAR HGB CONC 33.4 g/dL (32.0-36.0); MEAN CORPUSCULAR VOLUME 90 fl (80-97); MONOCYTES % (AUTO) 7.6 % (3-13); PLATELET COUNT 279 10^3/uL (150-450); RED CELL DISTRIBUTION WIDTH 15.9 % (11.5-14.0); SEGMENTED NEUTROPHILS % (AUTO) 64.8 % (42-78); TOTAL CELLS COUNTED % (AUTO) 100 %; WHITE BLOOD COUNT 7.7 10^3/uL (4.0-10.5)
--- NOTE | 2017-07-19 18:14 | RADIOLOGY REPORT (SQ) ---
EXAM DESCRIPTION: CHEST SINGLE VIEW COMPLETED DATE/TIME: 07/19/2017 6:02 pm REASON FOR STUDY: stroke like sx COMPARISON: None. EXAM PARAMETERS: NUMBER OF VIEWS: One view. TECHNIQUE: Single frontal radiographic view of the chest acquired. RADIATION DOSE: NA LIMITATIONS: None. FINDINGS: LUNGS AND PLEURA: Focal, patchy opacification in the left base. MEDIASTINUM AND HILAR STRUCTURES: No masses. Contour normal. HEART AND VASCULAR STRUCTURES: Heart normal in size. Normal vasculature. BONES: No acute findings. HARDWARE: None in the chest. OTHER: No other significant finding. IMPRESSION: There is a focal opacification in the left base. Cannot exclude lingular infiltrate say radha subsegmental atelectasis. TECHNICAL DOCUMENTATION: JOB ID: [id number] [employer]- All Rights Reserved Reading location - IP/workstation name: [email or web address]
[2017-07-19 18:29] LABS: INTERNATIONAL RATION (INR) 0.91; PROTHROMBIN TIME 12.7 SEC (11.4-15.4)
[2017-07-19 18:30] LABS: PARTIAL THROMBOPLASTIN TIME 32.7 SEC (23.5-35.8)
--- NOTE | 2017-07-19 18:32 | RADIOLOGY REPORT (SQ) ---
EXAM DESCRIPTION: CT HEAD WITHOUT COMPLETED DATE/TIME: 07/19/2017 6:16 pm REASON FOR STUDY: [place] high BP slurred speech; eval bleed infarct COMPARISON: 06/04/2017 TECHNIQUE: Axial images acquired through the brain without intravenous contrast. Images reviewed wi th bone, brain and subdural windows. Additional sagittal and coronal reconstructions were generated. Images stored on PACS. All CT scanners at this facility use dose modulation, iterative reconstruction, and/or weight based d osing when appropriate to reduce radiation dose to as low as reasonably achievable (ALARA). [facility]: Dose Right [facility]: CareDose [facility]: Dose Right [facility]: Teradose 4D [facility]: Smart [employer] RADIATION DOSE: CT Rad equipment meets quality standard of care and radiation dose reduction techniq ues were employed. CTDIvol: 53.2 mGy. DLP: 1070 mGy-cm. mGy. LIMITATIONS: None. FINDINGS: VENTRICLES: Normal size and contour. CEREBRUM: There is a small, old infarct in the left frontal lobe with encephalomalacia. There is no mass, midline shift, or hemorrhage. No acute infarction is seen. Normal galvez/white matter differenti ation. No areas of low density in the white matter. CEREBELLUM: No masses. No hemorrhage. No alteration of density. No evidence for acute infarction. EXTRAAXIAL SPACES: No fluid collections. No masses. ORBITS AND GLOBE: No intra- or extraconal masses. Normal contour of globe without masses. CALVARIUM: Craniotomy changes on the right. PARANASAL SINUSES: No fluid or mucosal thickening. SOFT TISSUES: No mass or hematoma. OTHER: Aneurysm clip in the medial right base. IMPRESSION: Old left frontal infarct with no acute intracranial imaging findings. EVIDENCE OF ACUTE STROKE: NO. COMMENT: Quality ID # [id number]: Final reports with documentation of one or more dose reduction techniques (e.g., Automated exposure control, adjustment of the mA and/or kV according to patient size, use of iterative reconstruction technique) TECHNICAL DOCUMENTATION: JOB ID: [id number] [employer]- All Rights Reserved Reading location - IP/workstation name: [email or web address]
[2017-07-19 19:28] LABS: ALANINE AMINOTRANSFERASE 31 U/L (21-72); ALKALINE PHOSPHATASE 76 U/L (38-126); ANION GAP 10 (5-19); ASPARTATE AMINO TRANSFERASE 23 U/L (17-59); BILIRUBIN,DIRECT 0.4 mg/dL (0.0-0.4); BILIRUBIN,TOTAL 0.5 mg/dL (0.2-1.3); BLOOD UREA NITROGEN 6 mg/dL (7-20); CALCIUM 9.3 mg/dL (8.4-10.2); CARBON DIOXIDE 32 mmol/L (22-30); CHLORIDE 108 mmol/L (98-107); GLUCOSE 91 mg/dL (75-110); SODIUM 150.2 mmol/L (137-145); TOTAL PROTEIN 7.7 g/dL (6.3-8.2)
[2017-07-19 19:46] LABS: VENOUS BLOOD BASE EXCESS 1.8 mmol/L; VENOUS BLOOD HCO3 29.6 mmol/L (20-32); VENOUS BLOOD PH 7.33 (7.30-7.42)
[2017-07-19 21:05] LABS: APPEARANCE,URINE CLEAR; BILIRUBIN,URINE NEGATIVE (NEGATIVE); COLOR,URINE YELLOW; GLUCOSE, URINE NEGATIVE (NEGATIVE); KETONES,URINE NEGATIVE (NEGATIVE); LEUKOCYTE ESTERASE,URINE NEGATIVE (NEGATIVE); NITRITE,URINE NEGATIVE (NEGATIVE); PROTEIN,URINE NEGATIVE (NEGATIVE); URINE SPECIFIC GRAVITY 1.023
[2017-07-19] MEDS ORDERED: LEVOFLOXACIN 750 MG TABLET PO ONE (21:22)
--- NOTE | 2017-07-19 21:28 | ER Document Report ---
ED General - General Chief Complaint: High Blood Pressure Stated Complaint: BLOOD PRESSURE ISSUE Time Seen by Provider: 07/19/17 17:16 Cannot obtain history due to: Mentally challenged Notes: Patient is a 52-year-old male with a past medical history of prior aneurysms status post clipping and residual cognitive deficits at baseline who presents with 3 days of fatigue, sleeping most of the day as well as 1 week of a rattly cough per the at the bedside. She reports that the patient does not speak much anymore ever since he had his subarachnoid hemorrhage with subsequent brain injury. She states that he has a history of urinary tract infections that often presents in a similar fashion. She notes that he has not had a fever , vomiting, diarrhea, or new neurologic deficits. She does however note that is abnormal that he is sleeping so much. He has not seen his primary doctor regarding these concerns. Nothing has been noted to improve or worsen his symptoms. History is otherwise limited secondary to the baseline cognitive function of the patient TRAVEL OUTSIDE OF THE [place] 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 Positive for fatigue. HENT: Negative for sore throat. Eyes: Negative for visual changes. Cardiovascular: Negative for chest pain. Respiratory: Positive for cough. Gastrointestinal: Negative for abdominal pain, vomiting or diarrhea. Genitourinary: Negative for dysuria. Musculoskeletal: Negative for back pain. Skin: Negative for rash. Neurological: Negative for headaches, weakness or numbness. 10 point ROS negative except as marked above and in HPI. Physical Exam - Vital signs Vitals: Temp Pulse Resp BP Pulse Ox 98.4 F 51 L 14 143/90 H 90 L 07/19/17 17:12 07/19/17 17:12 07/19/17 17:12 07/19/17 17:12 07/19/17 17:12 Interpretation: Bradycardic, Hypoxic - Patient normally uses 2 L of oxygen at baseline and this pulse ox was taken on room air Notes: PHYSICAL EXAMINATION: GENERAL: Well-appearing, well-nourished and in no acute distress. HEAD: Atraumatic, normocephalic. EYES: Pupils equal round and reactive to light, extraocular movements intact, sclera anicteric, conjunctiva are normal. ENT: nares patent, oropharynx clear without exudates. Moderately dry mucous membranes. NECK: Normal range of motion, supple without lymphadenopathy LUNGS: Breath sounds clear to auscultation bilaterally and equal. No wheezes rales or rhonchi. HEART: Regular rate and rhythm without murmurs ABDOMEN: Soft, nontender, normoactive bowel sounds. No guarding, no rebound. No masses appreciated. EXTREMITIES: Normal range of motion, no pitting or edema. No cyanosis. NEUROLOGICAL: 4 out of 5 distal and proximal upper and lower on the left, 5 out of 5 on right. reports this is baseline. Moves all extremities spontaneously and on command. PSYCH: Slow to respond to questions. Pleasant on contact. SKIN: Warm, Dry, normal turgor, no rashes or lesions noted. Course - Re-evaluation Re-evalutation: 07/19/17 21:24 Patient presents with multiple complaints, found to have a likely left lower lobe pneumonia on examination which is clinically consistent with the patient's presentation of having a rattly cough and some mild shortness of breath increased from baseline for the past 1 week. The 's main concern is that the patient has been more fatigued than normal. An infection would certainly account for this. The remainder of the patient's laboratories do suggest some dehydration and patient is tolerated oral fluids here well. Troponin is normal , EKG unremarkable, repeat CT of the head does not show any evidence of a repeat aneurysmal bleed. Patient has no new neurologic deficits from baseline on examination. No indication for hospitalization given that the patient's vitals are within normal limits and he tolerates oral intake without difficulty , saturating at 95-96% on his normal home 2 L by nasal cannula. He will be started on levofloxacin for the next 5 days has been instructed to follow-up with his primary care physician within the next several days. At this time will discharge with return precautions and follow-up recommendations. Verbal discharge instructions given a the bedside and opportunity for questions given. Medication warnings reviewed. Patient is in agreement with this plan and has verbalized understanding of return precautions and the need for primary care follow-up in the next 24-72 hours. - Vital Signs Vital signs: Temp Pulse Resp BP Pulse Ox 97.8 F 51 L 18 165/98 H 95 07/19/17 22:46 07/19/17 17:12 07/19/17 22:46 07/19/17 22:46 07/19/17 22:46 - Laboratory Result Diagrams: 07/19/17 17:55 07/19/17 17:55 Laboratory results interpreted by me: 07/19/17 07/19/17 07/19/17 17:55 17:55 17:55 RBC 5.70 H Hgb 17.1 H Hct 51.1 H RDW 15.9 H Sodium 150.2 H Chloride 108 H Carbon Dioxide 32 H BUN 6 L Ammonia < 8.7 L Urine Urobilinogen 07/19/17 20:47 RBC Hgb Hct RDW Sodium Chloride Carbon Dioxide BUN Ammonia Urine Urobilinogen 2.0 H - Diagnostic Test Radiology reviewed: Image reviewed, Reports reviewed Radiology results interpreted by me: 07/19/17 21:26 Chest x-ray: Left lower lobe infiltrate - EKG Interpretation by Me Additional EKG results interpreted by me: 07/19/17 21:27 Sinus bradycardia. Rate 45, no ST elevations or depressions. QTC is 416. Discharge - Discharge Clinical Impression: Dehydration Left lower lobe pneumonia Qualifiers: Pneumonia type: due to unspecified organism Qualified Code(s): J18.1 - Lobar pneumonia, unspecified organism Fatigue Qualifiers: Fatigue type: unspecified Qualified Code(s): R53.83 - Other fatigue Condition: Good Disposition: HOME, SELF-CARE Additional Instructions: You have been diagnosed with a pneumonia. It is very important that you take all of your antibiotics until they are gone even if you are feeling better. Please return to the emergency department immediately if you began having worsening shortness of breath, become confused, have worsening pain, pass out, have persistent vomiting that prevents you from being able to drink fluids for more than 12 hours, or have any other symptoms that are worrisome to you. Please follow-up with your primary care doctor in the next 1-2 days. Prescriptions: Levofloxacin [Levaquin 750 mg Tablet] 750 mg PO DAILY #4 tablet
[2017-07-19 22:53] VITALS: BP 165/98
--- NOTE | 2017-07-20 07:31 | EKG REPORT ---
SEVERITY:- ABNORMAL ECG - SINUS BRADYCARDIA LOW VOLTAGE IN FRONTAL LEADS ABNORMAL T, CONSIDER ISCHEMIA, ANT-LAT LEADS,INCREASED FROM 06/04/17 EKG : Confirmed by: Saul Mercer MD 20-Jul-2017 07:30:19
== END 2017-07-19 22:53 | disposition home or self-care (01) ==
LOC: ER 16:59
DX: J44.0 Chronic obstructive pulmonary disease with (acute) lower respiratory infection (principal); J18.1 Lobar pneumonia, unspecified organism; Z99.81 Dependence on supplemental oxygen; E86.0 Dehydration; I10 Essential (primary) hypertension; R53.83 Other fatigue; R05 Cough; R06.02 Shortness of breath; R00.1 Bradycardia, unspecified; I69.319 Unspecified symptoms and signs involving cognitive functions following cerebral infarction; I69.354 Hemiplegia and hemiparesis following cerebral infarction affecting left non-dominant side; Z87.442 Personal history of urinary calculi
CPT/HCPCS: 93005; 99284; 36415; 87040; 82140; 85025; 85610; 85730; 80053; 81001; 84484; 82803; 83605; 71045; 70450; 93010; J3490

== ENCOUNTER → 2017-08-04 | Outpatient (CLI) | payer MEDICAID ==
--- NOTE | 2017-08-04 10:27 | RADIOLOGY REPORT (SQ) ---
EXAM DESCRIPTION: CHEST PA/LATERAL COMPLETED DATE/TIME: 08/04/2017 9:41 am REASON FOR STUDY: CHRONIC RESPIRATORY FAILURE WITH HYPOXIA COMPARISON: 07/19/2017 EXAM PARAMETERS: NUMBER OF VIEWS: two views TECHNIQUE: Digital Frontal and Lateral radiographic views of the chest acquired. RADIATION DOSE: NA LIMITATIONS: none FINDINGS: LUNGS AND PLEURA: Continued patchy infiltrate left lung base. No pleural effusion. No ne w developing areas of infiltrate. MEDIASTINUM AND HILAR STRUCTURES: No masses or contour abnormalities. HEART AND VASCULAR STRUCTURES: Heart normal size. No evidence for failure. BONES: No acute findings. HARDWARE: None in the chest. OTHER: No other significant finding. IMPRESSION: Continued patchy infiltrate left lung base. TECHNICAL DOCUMENTATION: JOB ID: [id number] [employer]- All Rights Reserved Reading location - IP/workstation name: [email or web address]
== END ==
LOC: OD 09:32
PROVIDERS: ATTEND Internal Medicine Pulmonary Disease
DX: J96.11 Chronic respiratory failure with hypoxia (principal)
CPT/HCPCS: 71046

== ENCOUNTER 2018-03-18 11:56 | Observation (INO) | payer MEDICAID ==
--- NOTE | 2018-03-18 12:55 | RADIOLOGY REPORT (SQ) ---
EXAM DESCRIPTION: CT HEAD WITHOUT COMPLETED DATE/TIME: 03/18/2018 12:39 pm REASON FOR STUDY: c/o [place] hx of SAH and stroke COMPARISON: 07/19/2017 TECHNIQUE: Axial images acquired through the brain without intravenous contrast. Images reviewed wi th bone, brain and subdural windows. Additional sagittal and coronal reconstructions were generated. Images stored on PACS. All CT scanners at this facility use dose modulation, iterative reconstruction, and/or weight based d osing when appropriate to reduce radiation dose to as low as reasonably achievable (ALARA). [facility]: Dose Right [facility]: CareDose [facility]: Dose Right [facility]: Teradose 4D [facility]: [employer] RADIATION DOSE: CT Rad equipment meets quality standard of care and radiation dose reduction techniq ues were employed. CTDIvol: 53.2 mGy. DLP: 1044 mGy-cm. mGy. LIMITATIONS: None. FINDINGS: VENTRICLES: Normal size and contour. CEREBRUM: Unchanged area of hypoattenuation within the anterior left frontal lobe. Postsurgical bansal ges from the right frontal parietal craniotomy with surgical clip/ coils within the right parasellar region. No evidence of acute large vascular territory infarct. No evidence of mass or mass effect. Chen-white differentiation is preserved. CEREBELLUM: No masses. No hemorrhage. No alteration of density. No evidence for acute infarction. EXTRAAXIAL SPACES: No fluid collections. No masses. ORBITS AND GLOBE: No intra- or extraconal masses. Normal contour of globe without masses. CALVARIUM: No acute fracture abnormality. Postsurgical changes from the right frontoparietal craniot vilma. Evidence of left frontal parisa hole. PARANASAL SINUSES: No fluid or mucosal thickening. SOFT TISSUES: No mass or hematoma. OTHER: No other significant finding. IMPRESSION: No evidence of acute intracranial abnormality. Stable left frontal hypoattenuation and postsurgical changes from the right frontal parietal cranioto my and aneurysm clipping. EVIDENCE OF ACUTE STROKE: NO. COMMENT: Quality ID # [id number]: Final reports with documentation of one or more dose reduction techniques (e.g., Automated exposure control, adjustment of the mA and/or kV according to patient size, use of iterative reconstruction technique) TECHNICAL DOCUMENTATION: JOB ID: [id number] [employer]- All Rights Reserved Reading location - IP/workstation name: [email or web address]
--- NOTE | 2018-03-18 12:57 | RADIOLOGY REPORT (SQ) ---
EXAM DESCRIPTION: CHEST 2 VIEWS COMPLETED DATE/TIME: 03/18/2018 12:45 pm REASON FOR STUDY: shortness of breath COMPARISON: 07/19/2017 EXAM PARAMETERS: NUMBER OF VIEWS: two views TECHNIQUE: Digital Frontal and Lateral radiographic views of the chest acquired. RADIATION DOSE: NA LIMITATIONS: none FINDINGS: LUNGS AND PLEURA: Persistent linear lingular opacity possibly atelectasis or scarring. No new airspace disease, pleural effusion or pneumothorax MEDIASTINUM AND HILAR STRUCTURES: No masses or contour abnormalities. HEART AND VASCULAR STRUCTURES: Heart normal size. No evidence for failure. BONES: No acute findings. HARDWARE: None in the chest. OTHER: No other significant finding. IMPRESSION: Persistent linear lingular opacity likely scarring. No additional evidence of acute int rathoracic process. TECHNICAL DOCUMENTATION: JOB ID: [id number] [employer]- All Rights Reserved Reading location - IP/workstation name: [email or web address]
[2018-03-18] MEDS ORDERED: NORMAL SALINE 500 ML IV ONE (13:02)
[2018-03-18 13:15] LABS: ABSOLUTE EOSINOPHILS # (AUTO) 0.1 10^3/uL (0.0-0.6); ABSOLUTE LYMPHOCYTES (AUTO) 2.2 10^3/uL (0.5-4.7); ABSOLUTE MONOCYTES (AUTO) 0.6 10^3/uL (0.1-1.4); ABSOLUTE NEUT (AUTO) 3.8 10^3/uL (1.7-8.2); BASOPHILS % (AUTO) 0.3 % (0-2); EOSINOPHILS % (AUTO) 1.6 % (0-6); HEMATOCRIT 49.2 % (37.9-51.0); HEMOGLOBIN 16.4 g/dL (13.5-17.0); LYMPHOCYTES % (AUTO) 32.1 % (13-45); MEAN CORPUSCULAR HEMOGLOBIN 29.8 pg (27.0-33.4); MEAN CORPUSCULAR HGB CONC 33.5 g/dL (32.0-36.0); MEAN CORPUSCULAR VOLUME 89 fl (80-97); MONOCYTES % (AUTO) 9.4 % (3-13); PLATELET COUNT 248 10^3/uL (150-450); RED BLOOD COUNT 5.51 10^6/uL (4.35-5.55); SEGMENTED NEUTROPHILS % (AUTO) 56.6 % (42-78); TOTAL CELLS COUNTED % (AUTO) 100 %; WHITE BLOOD COUNT 6.8 10^3/uL (4.0-10.5)
[2018-03-18 13:21] LABS: INTERNATIONAL RATION (INR) 0.88; PROTHROMBIN TIME 12.4 SEC (11.4-15.4)
[2018-03-18 13:34] LABS: ALANINE AMINOTRANSFERASE 21 U/L (21-72); ALBUMIN 4.2 g/dL (3.5-5.0); ALKALINE PHOSPHATASE 81 U/L (38-126); ANION GAP 8 (5-19); ASPARTATE AMINO TRANSFERASE 21 U/L (17-59); BILIRUBIN,DIRECT 0.3 mg/dL (0.0-0.4); BILIRUBIN,TOTAL 0.7 mg/dL (0.2-1.3); BLOOD UREA NITROGEN 9 mg/dL (7-20); CALCIUM 9.2 mg/dL (8.4-10.2); CARBON DIOXIDE 33 mmol/L (22-30); CHLORIDE 106 mmol/L (98-107); CREATINE KINASE 78 U/L (55-170); GLUCOSE 105 mg/dL (75-110); POTASSIUM 4.1 mmol/L (3.6-5.0); TOTAL PROTEIN 7.9 g/dL (6.3-8.2)
[2018-03-18 13:44] LABS: VENOUS BLOOD BASE EXCESS 4.4 mmol/L; VENOUS BLOOD HCO3 32.3 mmol/L (20-32); VENOUS BLOOD PCO2 59.8 mmHg (35-63); VENOUS BLOOD PH 7.35 (7.30-7.42)
[2018-03-18 13:59] LABS: CREATINE KINASE MB < 0.22 ng/mL (<4.55); TROPONIN I < 0.012 ng/mL
[2018-03-18 14:27] LABS: APPEARANCE,URINE CLEAR; BILIRUBIN,URINE NEGATIVE (NEGATIVE); COLOR,URINE AMBER; GLUCOSE, URINE NEGATIVE (NEGATIVE); KETONES,URINE NEGATIVE (NEGATIVE); LEUKOCYTE ESTERASE,URINE NEGATIVE (NEGATIVE); NITRITE,URINE NEGATIVE (NEGATIVE); PROTEIN,URINE 30 mg/dL (NEGATIVE); URINE SPECIFIC GRAVITY 1.026
--- NOTE | 2018-03-18 15:36 | ER Document Report ---
ED General - General Chief Complaint: Altered Mental Status Stated Complaint: LEG PAIN Time Seen by Provider: 03/18/18 12:49 TRAVEL OUTSIDE OF THE [place] IN LAST 30 DAYS: No - HPI Patient complains to provider of: alter mental status Notes: The patient came in today for ALTER MENTAL Status after being seen by his pcp. according to the family pt had not been acting like himself for greater than 48 hour. states the patient is lethargic slow to answer. pt today had trouble in ambulation. pt is awake upon my eval state that he does not feel like himself or good. denies any changes to medications. no fevers chills n/v/d. no cp no abd pain. family states has developed tremors or shaking in his hands and feet. 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., Hx Seizures Renal/ Medical History: Denies: Hx Peritoneal Dialysis Psychiatric Medical History: Reports: Hx Depression Past Surgical History: Reports: Hx Neurologic Surgery - 2 [place] [facility] [place] aneurysms clipped/ventriculostomy tube following the SAH, Hx Oral Surgery - fractured jaw surgery - Immunizations Hx Diphtheria, Pertussis, Tetanus Vaccination: No Review of Systems - Review of Systems Constitutional: Other - feeling weak unwell EENT: No symptoms reported Cardiovascular: No symptoms reported Respiratory: No symptoms reported Gastrointestinal: No symptoms reported Genitourinary: No symptoms reported Male Genitourinary: No symptoms reported Musculoskeletal: No symptoms reported Skin: No symptoms reported Hematologic/Lymphatic: No symptoms reported Neurological/Psychological: No symptoms reported -: Yes All other systems reviewed and negative Physical Exam - Vital signs Vitals: Temp Pulse Resp BP Pulse Ox 98.3 F 73 22 H 118/83 91 L 03/18/18 12:14 03/18/18 12:14 03/18/18 12:14 03/18/18 12:14 03/18/18 12:14 Interpretation: Normal - General General appearance: Appears well, Alert - HEENT Head: Normocephalic, Atraumatic Eyes: Normal Pupils: PERRL - Respiratory Respiratory status: No respiratory distress Chest status: Nontender Breath sounds: Normal Chest palpation: Normal - Cardiovascular Rhythm: Regular Heart sounds: Normal auscultation Murmur: No - Abdominal Inspection: Normal Distension: No distension Bowel sounds: Normal Tenderness: Nontender Organomegaly: No organomegaly - Back Back: Normal, Nontender - Extremities General upper extremity: Normal inspection, Nontender, Normal color, Normal ROM, Normal temperature General lower extremity: Normal inspection, Nontender, Normal color, Normal temperature. 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 will admit for further obs - Vital Signs Vital signs: Temp Pulse Resp BP Pulse Ox 98.3 F 70 17 115/91 H 94 03/18/18 12:14 03/18/18 15:35 03/18/18 19:01 03/18/18 19:01 03/18/18 19:01 - Laboratory Result Diagrams: 03/18/18 12:55 03/18/18 12:55 Laboratory results interpreted by me: 03/18/18 03/18/18 03/18/18 12:55 12:55 13:25 RDW 16.0 H VBG HCO3 32.3 H Sodium 147.0 H Carbon Dioxide 33 H Urine Protein Urine Urobilinogen 03/18/18 13:25 RDW VBG HCO3 Sodium Carbon Dioxide Urine Protein 30 H Urine Urobilinogen 4.0 H Discharge - Discharge Clinical Impression: Altered mental state, Hx of brain surgery, Dehydration, Hypernatremia Condition: Good Disposition: ADMITTED OBSERVATION Admitting Provider: Kuldip Byrne Unit Admitted: Medical Floor
[2018-03-18] MEDS ORDERED: MAGNESIUM HYDROXIDE SUSP 30 ML UDCUP PO PRN (15:46)
[2018-03-18] MEDS ORDERED: IPRATROPIUM/ALBUTEROL 0.5-2.5 MG/3 ML AMPUL NEB PRN (15:46)
[2018-03-18] MEDS ORDERED: ACETAMINOPHEN 325 MG TABLET PO PRN (15:46)
[2018-03-18] MEDS ORDERED: ONDANSETRON HCL INJ/PF 4 MG/2 ML SDV IV PRN (15:53)
[2018-03-18] MEDS ORDERED: MAG HYDROX/AL HYDROX/SIMETH SUSP 30 ML UDCUP PO PRN (15:53)
[2018-03-18 16:06] LABS: URINE AMPHETAMINES SCREEN NEGATIVE; URINE BARBITURATES SCREEN NEGATIVE; URINE BENZODIAZEPINES SCREEN NEGATIVE; URINE COCAINE SCREEN NEGATIVE; URINE MARIJUANA (THC) SCREEN NEGATIVE; URINE METHADONE SCREEN NEGATIVE; URINE PHENCYCLIDINE SCREEN NEGATIVE
--- NOTE | 2018-03-18 16:14 | PDOC H&P ---
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 History is otherwise limited as the patient is a poor historian and his family members are not present. He presented to the emergency department today from his primary care provider's office for bilateral lower extremity leg pain after a mechanical fall 2 weeks ago and report of altered mental status. At the time of my exam, the patient's family members have left, and the patient is noted to be alert and oriented x4. He is noted to be a very poor historian and only complaint at present is, "I do not feel well," but he is unable to further describe his symptoms. Evaluation in the emergency department was rather unremarkable with acceptable vital signs (heart rate is noted to be in the mid to high 50s), normal CBC, coags, VBG, and unremarkable urinalysis, and chemistry demonstrating mild dehydration with a sodium of 147 and bicarb of 33. EKG demonstrates sinus bradycardia (heart rate 57) with abnormal T waves in the anterior and lateral leads which is unchanged from previous EKGs in our facility. Head CT demonstrates the stable left frontal hypoattenuation and postsurgical changes from a right frontoparietal craniotomy and aneurysmal clipping without acute findings. He is referred to the hospitalist service for admission and management of the above stated complaints. Past Medical History Cardiac Medical History: Reports: Hypertension Pulmonary Medical History: Reports: Chronic Obstructive Pulmonary Disease (COPD) EENT Medical History: Reports: None Neurological Medical History: Reports: Hemorrhagic CVA, Seizures Endocrine Medical History: Reports: None Renal/ Medical History: Reports: None Malignancy Medical History: Reports: None GI Medical History: Reports: None Musculoskeltal Medical History: Reports: None Skin Medical History: Reports: None Psychiatric Medical History: Reports: Bipolar Disorder, Depression Traumatic Medical History: Reports: None Hematology: Reports: None Infectious Medical History: Reports: None Past Surgical History Past Surgical History: Reports: Other - Craniotomy, aneurysm clipping Social History Information Source: Patient Lives with: Family Smoking Status: Unknown if Ever Smoked Frequency of Alcohol Use: None Hx Recreational Drug Use: Yes Drugs: None Hx Prescription Drug Abuse: No - Advance Directive Resuscitation Status: Full Code Surrogate healthcare decision maker:: The patient's . Family History Family History: Patient is a poor historian and able to relate family history Parental Family History Reviewed: No Children Family History Reviewed: No Sibling(s) Family History Reviewed.: No Medication/Allergy Allergies/Adverse Reactions: No Known Allergies Allergy (Verified 07/19/17 17:00) Review of Systems Constitutional: PRESENT: other - Malaise. ABSENT: chills, fever(s), headache(s), weight gain, weight loss Eyes: ABSENT: visual disturbances Ears: ABSENT: hearing changes Cardiovascular: ABSENT: chest pain, dyspnea on exertion, edema, orthropnea, palpitations Respiratory: ABSENT: cough, hemoptysis Gastrointestinal: ABSENT: abdominal pain, constipation, diarrhea, hematemesis, hematochezia, nausea, vomiting Genitourinary: ABSENT: dysuria, hematuria Musculoskeletal: PRESENT: other - BLE discomfort. ABSENT: joint swelling Integumentary: ABSENT: rash, wounds Neurological: PRESENT: as per HPI. ABSENT: abnormal gait, abnormal speech, confusion, dizziness, focal weakness, syncope Psychiatric: ABSENT: anxiety, depression, homidical ideation, suicidal ideation Endocrine: ABSENT: cold intolerance, heat intolerance, polydipsia, polyuria Hematologic/Lymphatic: ABSENT: easy bleeding, easy bruising Physical Exam Vital Signs: Temp Pulse Resp BP Pulse Ox 98.3 F 70 18 127/81 H 94 03/18/18 12:14 03/18/18 15:35 03/18/18 15:35 03/18/18 15:35 03/18/18 15:35 Intake & Output 03/17/18 03/18/18 03/19/18 06:59 06:59 06:59 Intake Total 500 Balance 500 Weight 105.233 kg General appearance: PRESENT: no acute distress, obese, well-developed, well- nourished Head exam: PRESENT: atraumatic, normocephalic Eye exam: PRESENT: conjunctival injection, EOMI, PERRLA. ABSENT: scleral i cterus Ear exam: PRESENT: normal external ear exam Mouth exam: PRESENT: moist, tongue midline Neck exam: ABSENT: carotid bruit, JVD, lymphadenopathy, thyromegaly Respiratory exam: PRESENT: clear to auscultation chip, symmetrical, unlabored. ABSENT: rales, rhonchi, wheezes Cardiovascular exam: PRESENT: RRR, +S1, +S2. ABSENT: diastolic murmur, rubs, systolic murmur Pulses: PRESENT: normal dorsalis pedis pul Vascular exam: PRESENT: normal capillary refill GI/Abdominal exam: PRESENT: normal bowel sounds, soft. ABSENT: distended, guarding, mass, organolmegaly, rebound, tenderness Rectal exam: PRESENT: deferred Extremities exam: PRESENT: full ROM, +1 edema - BLE pitting edema. ABSENT: calf tenderness, clubbing, pedal edema Neurological exam: PRESENT: alert, awake, oriented to person, oriented to place, oriented to time, oriented to situation, CN II-XII grossly intact, other - delayed/slowed speech. ABSENT: motor sensory deficit Psychiatric exam: PRESENT: flat affect, normal mood. ABSENT: homicidal ideation, suicidal ideation Skin exam: PRESENT: dry, intact, warm. ABSENT: cyanosis, rash Results Laboratory Results: 03/18/18 12:55 03/18/18 12:55 03/18/18 03/18/18 03/18/18 12:55 12:55 13:25 WBC 6.8 RBC 5.51 Hgb 16.4 Hct 49.2 MCV 89 MCH 29.8 MCHC 33.5 RDW 16.0 H Plt Count 248 Seg Neutrophils % 56.6 Lymphocytes % 32.1 Monocytes % 9.4 Eosinophils % 1.6 Basophils % 0.3 Absolute Neutrophils 3.8 Absolute Lymphocytes 2.2 Absolute Monocytes 0.6 Absolute Eosinophils 0.1 Absolute Basophils 0.0 VBG pH 7.35 VBG pCO2 59.8 VBG HCO3 32.3 H VBG Base Excess 4.4 Sodium 147.0 H Potassium 4.1 Chloride 106 Carbon Dioxide 33 H Anion Gap 8 BUN 9 Creatinine 1.06 Est GFR ( Amer) > 60 Est GFR (Non-Af Amer) > 60 Glucose 105 Calcium 9.2 Total Bilirubin 0.7 AST 21 ALT 21 Alkaline Phosphatase 81 Total Protein 7.9 Albumin 4.2 Urine Color Urine Appearance Urine pH Ur Specific Warner Urine Protein Urine Glucose (UA) Urine Ketones Urine Blood Urine Nitrite Ur Leukocyte Esterase Urine WBC (Auto) Urine RBC (Auto) 03/18/18 13:25 WBC RBC Hgb Hct MCV MCH MCHC RDW Plt Count Seg Neutrophils % Lymphocytes % Monocytes % Eosinophils % Basophils % Absolute Neutrophils Absolute Lymphocytes Absolute Monocytes Absolute Eosinophils Absolute Basophils VBG pH VBG pCO2 VBG HCO3 VBG Base Excess Sodium Potassium Chloride Carbon Dioxide Anion Gap BUN Creatinine Est GFR ( Amer) Est GFR (Non-Af Amer) Glucose Calcium Total Bilirubin AST ALT Alkaline Phosphatase Total Protein Albumin Urine Color BERNABE Urine Appearance CLEAR Urine pH 6.0 Ur Specific Warner 1.026 Urine Protein 30 H Urine Glucose (UA) NEGATIVE Urine Ketones NEGATIVE Urine Blood NEGATIVE Urine Nitrite NEGATIVE Ur Leukocyte Esterase NEGATIVE Urine WBC (Auto) 1 Urine RBC (Auto) 1 03/18/18 03/18/18 12:55 12:55 Creatine Kinase 78 CK-MB (CK-2) < 0.22 Troponin I < 0.012 Impressions: Chest X-Ray 03/18/18 00:00 IMPRESSION: Persistent linear lingular opacity likely scarring. No additional evidence of acute intrathoracic process. Head CT 03/18/18 00:00 IMPRESSION: No evidence of acute intracranial abnormality. Stable left frontal hypoattenuation and postsurgical changes from the right frontal parietal craniotomy and aneurysm clipping. EVIDENCE OF ACUTE STROKE: NO. Assessment & Plan - Diagnosis (1) Dehydration Is this a current diagnosis for this admission?: Yes Plan: Evidenced by hypernatremia, elevated bicarb, and concentrated urine. On exam, patient is noted to have dry skin and poor skin turgor. He is already been provided a normal saline 500 mL bolus by the ED provider. We will obtain orthostatic blood pressures. Gentle IV fluid rehydration. Encourage p.o. intake. Daily chemistry. (2) Hypernatremia Is this a current diagnosis for this admission?: Yes Plan: Sodium 147.0; review of labs reveals chronic hyponatremia (baseline 147-150). Possibly secondary to psychiatric medications. Gentle IV fluids. Daily chemistry. Once all medications are reconciled (unfortunately, patient's is not present, he is a poor historian, and home medication/list is unavailable), will review for side effects. Consider psychiatric input. (3) Bradycardia Is this a current diagnosis for this admission?: Yes Plan: Questionable asymptomatic bradycardia. Patient denies dizziness, headaches, palpitations, chest pain, dyspnea, however does report fatigue and generalized malaise. He is noted to have a heart rate in the mid to high 50s. EKG demonstrates normal sinus rhythm with anterior and lateral T wave changes; unchanged from previous EKGs. Initial troponin is negative. ProBNP is pending. We will monitor on continuous cardiac telemetry. (4) Bipolar disorder Is this a current diagnosis for this admission?: Yes Plan: Will resume home medications once reconciled; consider psychiatric input. (5) Altered mental status, unspecified Is this a current diagnosis for this admission?: Yes Plan: Unclear baseline. Per ED provider, the patient presented with his family members with report of altered mental status. At the time of my exam, he is noted to be alert and oriented x4, but a poor historian. Head CT is negative for acute findings. EKG is stable as compared to previous. He is noted to be bradycardic; symptomatic bradycardia is considered. Laboratory evaluation is unremarkable other than mild dehydration. UDS is pending. Consider medication side effect as the patient is noted to be bipolar and his previous medication list included multiple mood stabilizers/antipsychotics. Consider psychiatric evaluation. Monitor closely for evidence of focal deficits, worsening mental status, evidence of infection. Fall precautions. Physical therapy evaluation. Discharge planning is consulted. - Time Time Spent: 30 to 50 Minutes Medications reviewed and adjusted accordingly: No - Home medication list is unavailable at time of admission Anticipated discharge: Home Within: within 24 hours
[2018-03-18 17:15] LABS: FREE T4 (FREE THYROXINE) 1.08 ng/dL (0.78-2.19)
[2018-03-18 17:29] LABS: THYROID STIMULATING HORMONE 2.83 uIU/mL (0.47-4.68)
[2018-03-18] MEDS: FAMOTIDINE 20 MG TABLET PO SCH (22:27)
[2018-03-18] MEDS: HEPARIN SOD (PORCINE) 5,000 UNIT/ML 1 ML SYRINGE SUBCUT SCH (22:27)
--- NOTE | 2018-03-18 23:01 | EKG REPORT ---
SEVERITY:- ABNORMAL ECG - SINUS RHYTHM LOW VOLTAGE IN FRONTAL LEADS ABNORMAL T, CONSIDER ISCHEMIA, ANT-LAT LEADS : Confirmed by: Ayah Munguia MD 18-Mar-2018 23:00:33
[2018-03-19 05:12] LABS: HEMATOCRIT 48.2 % (37.9-51.0); HEMOGLOBIN 16.4 g/dL (13.5-17.0); MEAN CORPUSCULAR HEMOGLOBIN 30.3 pg (27.0-33.4); MEAN CORPUSCULAR VOLUME 89 fl (80-97); PLATELET COUNT 242 10^3/uL (150-450); RED BLOOD COUNT 5.41 10^6/uL (4.35-5.55); RED CELL DISTRIBUTION WIDTH 15.8 % (11.5-14.0)
[2018-03-19 05:35] LABS: ANION GAP 6 (5-19); BLOOD UREA NITROGEN 8 mg/dL (7-20); CALCIUM 8.7 mg/dL (8.4-10.2); CARBON DIOXIDE 29 mmol/L (22-30); CHLORIDE 110 mmol/L (98-107); GLUCOSE 96 mg/dL (75-110); POTASSIUM 4.1 mmol/L (3.6-5.0); SODIUM 144.5 mmol/L (137-145)
[2018-03-19] MEDS: HEPARIN SOD (PORCINE) 5,000 UNIT/ML 1 ML SYRINGE SUBCUT SCH ×3 (06:02→21:51)
[2018-03-19] MEDS: FAMOTIDINE 20 MG TABLET PO SCH ×2 (09:46→21:51)
[2018-03-19] MEDS: DOCUSATE SODIUM 100 MG CAPSULE PO SCH (09:46)
[2018-03-19] MEDS ORDERED: ALBUTEROL SULFATE HFA (90 MCG/PUFF) 200 PUFF/8.5 GM MDI IH PRN (14:26)
--- NOTE | 2018-03-19 14:56 | PDOC PROGRESS REPORT ---
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 Patient is seen on morning rounds. He is found resting in bed comfortably on his baseline oxygen requirement. Initially he is sleeping, but wakes easily when I say his name. Patient tells me that he is feeling well today and has no complaints. He states that he feels that his symptoms have all resolved. He denies fever, chills, headache, dizziness, chest pain, palpitations, dyspnea, orthopnea, abdominal pain, nausea vomiting and diarrhea. He has no new questions or concerns. No concerns per nursing. Reason For Visit: ALTERED MENTAL STATUS Physical Exam Vital Signs: Temp Pulse Resp BP Pulse Ox 98.2 F 62 15 141/88 H 93 03/19/18 07:00 03/19/18 07:00 03/19/18 07:00 03/19/18 07:00 03/19/18 07:00 Intake & Output 03/18/18 03/19/18 03/20/18 06:59 06:59 06:59 Intake Total 974 Balance 974 Weight 105.2 kg General appearance: PRESENT: no acute distress, obese, well-developed, well- nourished Head exam: PRESENT: atraumatic, normocephalic Eye exam: PRESENT: conjunctiva pink, EOMI, PERRLA. ABSENT: scleral icterus Ear exam: PRESENT: normal external ear exam Mouth exam: PRESENT: moist, tongue midline Neck exam: ABSENT: carotid bruit, JVD, lymphadenopathy, thyromegaly Respiratory exam: PRESENT: clear to auscultation chip. ABSENT: rales, rhonchi, wheezes Cardiovascular exam: PRESENT: RRR. ABSENT: diastolic murmur, rubs, systolic murmur Pulses: PRESENT: normal dorsalis pedis pul Vascular exam: PRESENT: normal capillary refill GI/Abdominal exam: PRESENT: normal bowel sounds, soft. ABSENT: distended, guarding, mass, organolmegaly, rebound, tenderness Rectal exam: PRESENT: deferred Extremities exam: PRESENT: full ROM, pedal edema - trace BLE. ABSENT: calf tenderness, clubbing Musculoskeletal exam: PRESENT: ambulatory Neurological exam: PRESENT: alert, awake, oriented to person, oriented to place, oriented to time, oriented to situation, CN II-XII grossly intact. ABSENT: motor sensory deficit Psychiatric exam: PRESENT: appropriate affect, normal mood. ABSENT: homicidal ideation, suicidal ideation Skin exam: PRESENT: dry, intact, warm. ABSENT: cyanosis, rash Results Laboratory Results: 03/19/18 04:17 03/19/18 04:17 03/18/18 03/19/18 03/19/18 12:55 04:17 04:17 WBC 7.0 RBC 5.41 Hgb 16.4 Hct 48.2 MCV 89 MCH 30.3 MCHC 34.0 RDW 15.8 H Plt Count 242 Sodium 144.5 Potassium 4.1 Chloride 110 H Carbon Dioxide 29 Anion Gap 6 BUN 8 Creatinine 0.92 Est GFR ( Amer) > 60 Est GFR (Non-Af Amer) > 60 Glucose 96 Calcium 8.7 TSH 2.83 Free T4 1.08 03/18/18 03/18/18 03/18/18 12:55 12:55 12:55 Creatine Kinase 78 CK-MB (CK-2) < 0.22 Troponin I < 0.012 NT-Pro-B Natriuret Pep 34 Impressions: Chest X-Ray 03/18/18 00:00 IMPRESSION: Persistent linear lingular opacity likely scarring. No additional evidence of acute intrathoracic process. Head CT 03/18/18 00:00 IMPRESSION: No evidence of acute intracranial abnormality. Stable left frontal hypoattenuation and postsurgical changes from the right frontal parietal craniotomy and aneurysm clipping. EVIDENCE OF ACUTE STROKE: NO. Assessment & Plan - Diagnosis (1) Dehydration Is this a current diagnosis for this admission?: Yes Plan: Resolved. Mild dehydration evidenced by hypernatremia, elevated bicarb, and concentrated urine. On exam, patient is noted to have dry skin and poor skin turgor. Orthostatic blood pressures are normal. Encourage p.o. intake. (2) Hypernatremia Is this a current diagnosis for this admission?: Yes Plan: Resolved. Sodium 147.0; review of labs reveals chronic hyponatremia (baseline 147-150). Possibly secondary to psychiatric medications. Daily chemistry. The patient's home medications have been reconciled. He is prescribed gabapentin, Restoril, Lamictal, Abilify, Lexapro, and trazodone. We will ask Dr. Morgan, psychiatry, to review medications and make recommendations. (3) Bradycardia Is this a current diagnosis for this admission?: Yes Plan: Stable and asymptomatic. Patient denies dizziness, headaches, palpitations, chest pain, dyspnea, however does report fatigue and generalized malaise. He is noted to have a heart rate in the mid to high 50s. EKG demonstrates normal sinus rhythm with anterior and lateral T wave changes; unchanged from previous EKGs. Troponin is negative. ProBNP is 34. TSH and free T4 normal. We will monitor on continuous cardiac telemetry. (4) Bipolar disorder Is this a current diagnosis for this admission?: Yes Plan: The patient's home medications have been reconciled. He is prescribed gabapentin, Restoril, Lamictal, Abilify, Lexapro, and trazodone. Have resumed Lamictal. Holding all others pending psychiatry's input. We will ask Dr. Morgan, psychiatry, to review medications and make recommendations. (5) Altered mental status, unspecified Is this a current diagnosis for this admission?: Yes Plan: Resolved. Patient is now and O x4, independently ambulatory, easily awakes, and reports that he feels that he has returned to his "normal self." Head CT is negative for acute findings. EKG is stable as compared to previous. He is noted to be bradycardic; symptomatic bradycardia is considered. Laboratory evaluation is unremarkable other than mild dehydration. UDS is negative. Likely related to multiple antidepressants/stabilizers. Dr. Morgan has been consulted; appreciate her evaluation of the patient's current home medication regiment and recommendations for dosing adjustments. Monitor closely for evidence of focal deficits, worsening mental status, evidence of infection. Fall precautions. Discharge planning is consulted. - Time Time Spent with patient: 15-24 minutes Medications reviewed and adjusted accordingly: Yes Anticipated discharge: Home Within: within 24 hours - Pending Psychiatry's review of patient's home medications.
[2018-03-19] MEDS: LAMOTRIGINE 100 MG TABLET PO SCH (17:19)
[2018-03-19] MEDS: GABAPENTIN 400 MG CAPSULE PO SCH (17:19)
[2018-03-19] MEDS ORDERED: AMLODIPINE BESYLATE 10 MG TABLET PO SCH (22:00)
[2018-03-20] MEDS: HEPARIN SOD (PORCINE) 5,000 UNIT/ML 1 ML SYRINGE SUBCUT SCH (05:04)
[2018-03-20 09:57] VITALS: BP 137/86
[2018-03-20] MEDS ORDERED: DIVALPROEX SODIUM 250 MG TAB.SR.24H PO SCH (10:00)
[2018-03-20] MEDS: DOCUSATE SODIUM 100 MG CAPSULE PO SCH (10:39)
[2018-03-20] MEDS: LAMOTRIGINE 100 MG TABLET PO SCH (10:39)
[2018-03-20] MEDS: FAMOTIDINE 20 MG TABLET PO SCH (10:39)
[2018-03-20] MEDS: GABAPENTIN 400 MG CAPSULE PO SCH (10:39)
--- NOTE | 2018-03-20 16:11 | PDOC DISCHARGE SUMMARY ---
General - Admit/Disc Date/PCP Admission Date/Primary Care Provider: 03/18/18 16:23 Discharge Date: 03/20/18 - Discharge Diagnosis (1) Dehydration Is this a current diagnosis for this admission?: Yes Summary: Resolved following IV fluid rehydration. Mild dehydration on admission was evidenced by hypernatremia, elevated bicarb, concentrated urine by urinalysis and, on exam, patient was noted to have dry skin and poor skin turgor. Orthostatic blood pressures are now normal. (2) Hypernatremia Is this a current diagnosis for this admission?: Yes Summary: Resolved. Sodium 147.0; review of labs reveals chronic hyponatremia (baseline 147-150). Possibly secondary to psychiatric medications. (3) Bradycardia Is this a current diagnosis for this admission?: Yes Summary: Stable and asymptomatic. Patient denies dizziness, headaches, palpitations, chest pain, dyspnea, however does report fatigue and generalized malaise. He is noted to have a heart rate in the mid to high 50s. EKG demonstrates normal sinus rhythm with anterior and lateral T wave changes; unchanged from previous EKGs. Troponin is negative. ProBNP is 34. TSH and free T4 normal. (4) Bipolar disorder Is this a current diagnosis for this admission?: Yes Summary: The patient's home medications were reconciled. He is prescribed gabapentin, Restoril, Lamictal, Abilify, Lexapro, and trazodone. Discussed with psychiatry, Dr. Morgan. Have resumed Lamictal and at lower dose gabapentin. Recommends holding Restoril, Abilify, Lexapro and trazodone. Initiated Depakote 250 mg daily. Patient should follow-up with his primary care provider within 1 week and with his neurologist/neuropsychologist as soon as possible. (5) Altered mental status, unspecified Is this a current diagnosis for this admission?: Yes Summary: Resolved. Patient is now and O x4, independently ambulatory, easily awakes, and reports that he feels that he has returned to his "normal self." Head CT is negative for acute findings. EKG is stable as compared to previous. Laboratory evaluation is unremarkable other than mild dehydration no corrected) (. UDS is negative. The patient's somnolence/AMS was likely related to multiple antidepressants/stabilizers. Psychiatry was consulted. Recommendations per Dr. Gilbert as described above. - Additional Information Resuscitation Status: Full Code Discharge Diet: Cardiac Discharge Activity: Activity As Tolerated, Balance Activity w/Rest Prescriptions: Divalproex Sodium [Depakote ER 250 mg Tablet] 250 mg PO DAILY #30 tab.sr.24h Docusate Sodium [Colace 100 mg Capsule] 100 mg PO DAILY #30 capsule Home Medications: Albuterol Sulfate [Proair HFA Inhalation Aerosol 8.5 gm MDI] 2 puff IH Q4HP PRN 03/18/18 Amlodipine Besylate [Norvasc 10 mg Tablet] 10 mg PO QHS 03/18/18 Gabapentin [Neurontin 400 mg Capsule] 400 mg PO QID 03/18/18 Lamotrigine [Lamictal 100 mg Tablet] 100 mg PO BID 03/18/18 Acetaminophen [Tylenol 325 mg Tablet] 650 mg PO Q4HP PRN tablet 03/20/18 Divalproex Sodium [Depakote ER 250 mg Tablet] 250 mg PO DAILY #30 tab.sr.24h 03/20/18 Docusate Sodium [Colace 100 mg Capsule] 100 mg PO DAILY #30 capsule 03/20/18 History of Present Illness History of Present Illness: LALITO AGRAWAL JR is a 53 year old male with a past medical history significant for 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 History is otherwise farias ited as the patient is a poor historian and his family members are not present. He presented to the emergency department today from his primary care provider's office for bilateral lower extremity leg pain after a mechanical fall 2 weeks ago and report of altered mental status. At the time of my exam, the patient's family members have left, and the patient is noted to be alert and oriented x4. He is noted to be a very poor historian and only complaint at present is, "I do not feel well," but he is unable to further describe his symptoms. Evaluation in the emergency department was rather unremarkable with acceptable vital signs (heart rate is noted to be in the mid to high 50s), normal CBC, coags, VBG, and unremarkable urinalysis, and chemistry demonstrating mild dehydration with a sodium of 147 and bicarb of 33. EKG demonstrates sinus bradycardia (heart rate 57) with abnormal T waves in the anterior and lateral leads which is unchanged from previous EKGs in our facility. Head CT demonstrates the stable left frontal hypoattenuation and postsurgical changes from a right frontoparietal craniotomy and aneurysmal clipping without acute findings. He is referred to the hospitalist service for admission and management of the above stated complaints. Physical Exam Vital Signs: Temp Pulse Resp BP Pulse Ox 98 F 53 L 16 137/86 H 92 03/20/18 12:53 03/20/18 12:53 03/20/18 12:53 03/20/18 12:53 03/20/18 12:53 Intake & Output 03/19/18 03/20/18 03/21/18 06:59 06:59 06:59 Intake Total 974 659 Balance 974 659 Weight 105.2 kg 105.2 kg General appearance: PRESENT: no acute distress, well-developed, well-nourished Head exam: PRESENT: atraumatic, normocephalic Eye exam: PRESENT: conjunctiva pink, EOMI, PERRLA. ABSENT: scleral icterus Ear exam: PRESENT: normal external ear exam Mouth exam: PRESENT: moist, tongue midline Neck exam: ABSENT: carotid bruit, JVD, lymphadenopathy, thyromegaly Respiratory exam: PRESENT: clear to auscultation chip. ABSENT: rales, rhonchi, wheezes Cardiovascular exam: PRESENT: RRR. ABSENT: diastolic murmur, rubs, systolic murmur Pulses: PRESENT: normal dorsalis pedis pul Vascular exam: PRESENT: normal capillary refill GI/Abdominal exam: PRESENT: normal bowel sounds, soft. ABSENT: distended, guarding, mass, organolmegaly, rebound, tenderness Rectal exam: PRESENT: deferred Extremities exam: PRESENT: full ROM. ABSENT: calf tenderness, clubbing, pedal edema Neurological exam: PRESENT: alert, awake, oriented to person, oriented to place, oriented to time, oriented to situation, CN II-XII grossly intact. ABSENT: motor sensory deficit Psychiatric exam: PRESENT: appropriate affect, normal mood. ABSENT: homicidal ideation, suicidal ideation Skin exam: PRESENT: dry, intact, warm. ABSENT: cyanosis, rash Results Laboratory Results: 03/19/18 04:17 03/19/18 04:17 03/18/18 03/18/18 03/18/18 12:55 12:55 12:55 Creatine Kinase 78 CK-MB (CK-2) < 0.22 Troponin I < 0.012 NT-Pro-B Natriuret Pep 34 Impressions: Chest X-Ray 03/18/18 00:00 IMPRESSION: Persistent linear lingular opacity likely scarring. No additional evidence of acute intrathoracic process. Head CT 03/18/18 00:00 IMPRESSION: No evidence of acute intracranial abnormality. Stable left frontal hypoattenuation and postsurgical changes from the right frontal parietal craniotomy and aneurysm clipping. EVIDENCE OF ACUTE STROKE: NO. Qualifiers - * PATIENT BEING DISCHARGED WITH ANY OF THE FOLLOWING DIAGNOSIS: No Plan Discharge Plan: Discharged home in the care of family members. Follow-up with primary care provider within 1 week. Recommending contacting the patient's established neurologist and scheduling a follow-up appointment to review new medication regiment. Return to the emergency department as needed for any concerning symptoms. Time Spent: Less than 30 Minutes
== END 2018-03-20 13:15 | disposition home or self-care (01) ==
LOC: ER 11:56 → EH 16:23 → 4N 20:42
PROVIDERS: ADMIT Internal Medicine; ATTEND Internal Medicine
DX: E86.0 Dehydration (principal); E87.0 Hyperosmolality and hypernatremia; R00.1 Bradycardia, unspecified; R53.83 Other fatigue; R53.81 Other malaise; F31.9 Bipolar disorder, unspecified; R41.82 Altered mental status, unspecified; M79.662 Pain in left lower leg; M79.661 Pain in right lower leg; W19.XXXA Unspecified fall, initial encounter; J44.9 Chronic obstructive pulmonary disease, unspecified; I10 Essential (primary) hypertension; G25.9 Extrapyramidal and movement disorder, unspecified; I69.098 Other sequelae following nontraumatic subarachnoid hemorrhage; Z79.899 Other long term (current) drug therapy; Z98.890 Other specified postprocedural states; Z95.828 Presence of other vascular implants and grafts; Z86.69 Personal history of other diseases of the nervous system and sense organs
CPT/HCPCS: 93005; 99285; 96360; 36415 ×2; 84439; 82553; 82962; 82550; 84443; 85025; 85027; 85610; 80048; 80053; 81001; 84484; 80307; 82803; 83880; 71046; 70450; 93010; G0378 ×4; J1644 ×2; J3490 ×10; J7040

== ENCOUNTER → 2018-08-23 | Outpatient (CLI) | payer MEDICAID ==
--- NOTE | 2018-08-23 12:21 | RADIOLOGY REPORT (SQ) ---
EXAM DESCRIPTION: SHOULDER RIGHT 2 OR MORE VIEWS COMPLETED DATE/TIME: 08/23/2018 11:53 am REASON FOR STUDY: RIGHT SHOULDER PAIN (M25.511) M25.511 PAIN IN RIGHT SHOULDER COMPARISON: None. NUMBER OF VIEWS: Three views. TECHNIQUE: Internal rotation, external rotation, and Y view images acquired of the right shoulder. LIMITATIONS: None. FINDINGS: MINERALIZATION: Normal. BONES: No acute fracture or dislocation. No worrisome bone lesions. JOINTS: Mild acromioclavicular arthrosis. No dislocation. VISUALIZED LUNGS AND RIBS: No pneumothorax. No rib fracture. SOFT TISSUES: No radiopaque foreign body. OTHER: No other significant finding. IMPRESSION: 1. No acute osseous findings. 2. Mild acromioclavicular arthrosis. TECHNICAL DOCUMENTATION: JOB ID: [id number] [employer]- All Rights Reserved Reading location - IP/workstation name: [email or web address]
== END ==
LOC: RAD 11:37
PROVIDERS: ATTEND Nurse Practitioner Family
DX: M25.511 Pain in right shoulder (principal); M19.011 Primary osteoarthritis, right shoulder

== ENCOUNTER → 2019-09-22 | Outpatient (CLI) | payer MEDICAID ==
--- NOTE | 2019-09-22 15:58 | RADIOLOGY REPORT (SQ) ---
EXAM DESCRIPTION: CT LUNG CANCER SCREENING IMAGES COMPLETED DATE/TIME: 09/22/2019 2:46 pm REASON FOR STUDY: Z87.891 PERSONAL HISTORY OF NICOTINE DEPENDENCE Z87.891 PERSONAL HISTORY OF NICOT INE DEPENDENCE Has the patient had a Chest CT scan within the past year? N Was the patient offered tobacco cessation counseling? Y Was the patient engaged in shared decision making for this test? Y Does the patient have signs or symptoms of Lung Cancer? N Is the patient a smoker? N How many pack years? 30 YEAR How many years since quitting smoking? 8 YEAR Patients age: 54 COMPARISON: None. TECHNIQUE: Low Dose CT scan performed of the chest without intravenous contrast for purposes of scre ening for lung cancer. Images reviewed with lung, soft tissue and bone windows. Reconstructed coron al and sagittal MPR images reviewed. All images stored on PACS. All CT scanners at this facility use dose modulation, iterative reconstruction, and/or weight based d osing when appropriate to reduce radiation dose to as low as reasonably achievable (ALARA). [facility]: Dose Right [facility]: CareDose [facility]: Dose Right [facility]: Teradose 4D [facility]: [employer] RADIATION DOSE: CT Rad equipment meets quality standard of care and radiation dose reduction techniq ues were employed. CTDIvol: NaN mGy. DLP: 0 mGy-cm. LIMITATIONS: None FINDINGS: LUNGS AND PLEURA: Atelectatic opacities in the lingula, right middle lobe and left lower lobe. There is no bronchiectasis, peripheral reticulation, honeycombing, consolidation, ground-glass opacification or pleural effusion. There is no pulmonary nodule. HILAR AND MEDIASTINAL STRUCTURES: No adenopathy or mass. HEART AND VASCULAR STRUCTURES: Cardiomegaly. No pericardial effusion or thoracic aortic aneurysm. CORONARY ARTERY CALCIFICATIONS: None. UPPER ABDOMEN, THYROID, BONES, OTHER SOFT TISSUES: No acute findings. IMPRESSION: No acute cardiopulmonary process. LUNGRADS: LUNGRADS: 1 NEGATIVE. NO NODULES, OR DEFINITELY BENIGN NODULES MODIFIER: NONE RECOMMENDATION: Continue annual screening with LDCT in 12 months. COMMENT: CRITERIA: No lung nodules. Nodules with specific calcifications: Complete, central, popcorn, concentric rings and fat containin g nodules. TECHNICAL DOCUMENTATION: JOB ID: [id number] Quality ID # [id number]: Final reports with documentation of one or more dose reduction techniques (e.g., Au tomated exposure control, adjustment of the mA and/or kV according to patient size, use of iterative reconstruction technique) 2010 [facility], [place] Radiology Reading location - IP/workstation name: [email or web address]
== END ==
LOC: RAD 14:10
PROVIDERS: ATTEND Registered Nurse
DX: Z12.2 Encounter for screening for malignant neoplasm of respiratory organs (principal); Z87.891 Personal history of nicotine dependence; I51.7 Cardiomegaly
CPT/HCPCS: G0297